=== PATIENT | male | born 1980 | race Caucasian/White ===

== ENCOUNTER 2017-05-19 10:45 | Inpatient (IN) | payer OTHER ==
--- NOTE | 2017-05-19 11:07 | ED ---
Lower Extremity Injury HPI - General Stated Complaint: Infected Knee Time Seen by Provider: 05/19/17 10:47 Source: patient, EMS, RN notes reviewed Mode of arrival: EMS Limitations: no limitations - History of Present Illness Initial Comments: This a 37-year-old male presents emergency Department chief complaint of right knee pain, swelling redness. Patient states that he's been working on a deck and states that he figured he may have a sliver in his knee. Patient states he thought it would just go away on its own and press the sliver out once it swelled. Patient states ever since Saturday he's had increasing redness, swelling. Patient states that he had a fever last night states that he had sweats and chills. Patient states that he has pain with any movement of his right knee especially weightbearing. He states his tetanus is up-to-date within the last 5 years. Patient has never seen an orthopedic doctor in the past. - Related Data Allergies Allergy/AdvReac Type Severity Reaction Status Date / Time No Known Allergies Allergy Verified 05/19/17 10:55 Review of Systems ROS Statement: Those systems with pertinent positive or pertinent negative responses have been documented in the HPI. ROS Other: All systems not noted in ROS Statement are negative. Past Medical History Past Medical History: No Reported History History of Any Multi-Drug Resistant Organisms: None Reported Past Surgical History: No Surgical Hx Reported Past Psychological History: No Psychological Hx Reported Smoking Status: Current every day smoker Past Alcohol Use History: Heavy Past Drug Use History: Marijuana General Exam Limitations: no limitations General appearance: alert, in no apparent distress Respiratory exam: Present: normal lung sounds bilaterally. Absent: respiratory distress, wheezes, rales, rhonchi, stridor Cardiovascular Exam: Present: regular rate, normal rhythm, normal heart sounds. Absent: systolic murmur, diastolic murmur, rubs, gallop, clicks Extremities exam: Present: other (Right knee in the inferior lateral aspect there is a 1 cm open wound with extensive erythema of approximately 50% of the knee patient has pain with active and passive range of motion there is warmth to the knee and moderate swelling) Skin exam: Present: warm, dry Course Vital Signs 05/19/17 10:51 Temperature 97.9 F Pulse Rate 68 Respiratory 18 Rate Blood Pressure 135/77 O2 Sat by Pulse 100 Oximetry Medical Decision Making - Medical Decision Making I did discuss case with nidhi orozco with orthopedics he does recommend the patient be admitted to medicine with consult to infectious disease and or thrill. - Lab Data Result diagrams: 05/19/17 11:00 05/19/17 11:00 Lab Results 05/19/17 05/19/17 05/19/17 Range/Units 11:00 11:00 11:00 WBC 15.8 H (3.8-10.6) k/uL RBC 5.07 (4.30-5.90) m/uL Hgb 16.1 (13.0-17.5) gm/dL Hct 46.8 (39.0-53.0) % MCV 92.2 (80.0-100.0) fL MCH 31.8 (25.0-35.0) pg MCHC 34.4 (31.0-37.0) g/dL RDW 13.9 (11.5-15.5) % Plt Count 281 (150-450) k/uL Neutrophils % 81 % Lymphocytes % 10 % Monocytes % 6 % Eosinophils % 2 % Basophils % 0 % Neutrophils # 12.8 H (1.3-7.7) k/uL Lymphocytes # 1.6 (1.0-4.8) k/uL Monocytes # 0.9 (0-1.0) k/uL Eosinophils # 0.3 (0-0.7) k/uL Basophils # 0.1 (0-0.2) k/uL ESR 9 (0-15) mm/hr PT (9.0-12.0) sec INR (<1.2) APTT (22.0-30.0) sec Sodium 141 (137-145) mmol/L Potassium 3.9 (3.5-5.1) mmol/L Chloride 103 (98-107) mmol/L Carbon Dioxide 26 (22-30) mmol/L Anion Gap 12 mmol/L BUN 12 (9-20) mg/dL Creatinine 0.90 (0.66-1.25) mg/dL Est GFR (MDRD) Af Amer >60 (>60 ml/min/1.73 sqM) Est GFR (MDRD) Non-Af >60 (>60 ml/min/1.73 sqM) Glucose 85 (74-99) mg/dL Plasma Lactic Acid Sam 1.4 (0.7-2.0) mmol/L Calcium 10.0 (8.4-10.2) mg/dL Total Bilirubin 1.1 (0.2-1.3) mg/dL AST 20 (17-59) U/L ALT 32 (21-72) U/L Alkaline Phosphatase 59 (38-126) U/L C-Reactive Protein 124.3 H (<10.0) mg/L Total Protein 6.7 (6.3-8.2) g/dL Albumin 4.4 (3.5-5.0) g/dL 05/19/17 Range/Units 11:00 WBC (3.8-10.6) k/uL RBC (4.30-5.90) m/uL Hgb (13.0-17.5) gm/dL Hct (39.0-53.0) % MCV (80.0-100.0) fL MCH (25.0-35.0) pg MCHC (31.0-37.0) g/dL RDW (11.5-15.5) % Plt Count (150-450) k/uL Neutrophils % % Lymphocytes % % Monocytes % % Eosinophils % % Basophils % % Neutrophils # (1.3-7.7) k/uL Lymphocytes # (1.0-4.8) k/uL Monocytes # (0-1.0) k/uL Eosinophils # (0-0.7) k/uL Basophils # (0-0.2) k/uL ESR (0-15) mm/hr PT 10.7 (9.0-12.0) sec INR 1.1 (<1.2) APTT 25.3 (22.0-30.0) sec Sodium (137-145) mmol/L Potassium (3.5-5.1) mmol/L Chloride (98-107) mmol/L Carbon Dioxide (22-30) mmol/L Anion Gap mmol/L BUN (9-20) mg/dL Creatinine (0.66-1.25) mg/dL Est GFR (MDRD) Af Amer (>60 ml/min/1.73 sqM) Est GFR (MDRD) Non-Af (>60 ml/min/1.73 sqM) Glucose (74-99) mg/dL Plasma Lactic Acid Sam (0.7-2.0) mmol/L Calcium (8.4-10.2) mg/dL Total Bilirubin (0.2-1.3) mg/dL AST (17-59) U/L ALT (21-72) U/L Alkaline Phosphatase (38-126) U/L C-Reactive Protein (<10.0) mg/L Total Protein (6.3-8.2) g/dL Albumin (3.5-5.0) g/dL Disposition Clinical Impression: Septic infrapatellar bursitis of right knee Disposition: ADMITTED IP TO THIS HOSP Condition: Fair Referrals: None,Stated [Primary Care Provider] - 1-2 days Time of Disposition: 12:49
[2017-05-19 11:19] LABS: Basophils # (A) 0.1 k/uL (0-0.2); Basophils % (A) 0 %; CH 31.9; CHCM 34.8; Eosinophils # (A) 0.3 k/uL (0-0.7); Eosinophils % (A) 2 %; HCT 46.8 % (39.0-53.0); HDW 2.22; HGB 16.1 gm/dL (13.0-17.5); Luc # (Auto) 0.18; Luc % (Auto) 1; Lymphocytes # (A) 1.6 k/uL (1.0-4.8); Lymphocytes % (A) 10 %; MCH 31.8 pg (25.0-35.0); MCHC 34.4 g/dL (31.0-37.0); MCV 92.2 fL (80.0-100.0); Mean Platelet Volume 6.8; Monocytes # (A) 0.9 k/uL (0-1.0); Monocytes % (A) 6 %; Neutrophils # (A) 12.8 k/uL (1.3-7.7); Neutrophils % (A) 81 %; RBC 5.07 m/uL (4.30-5.90); RDW 13.9 % (11.5-15.5); WBC 15.8 k/uL (3.8-10.6); WBC (Perox) 14.65
[2017-05-19 11:28] LABS: INR 1.1 (<1.2); Partial Thromboplastin Time 25.3 sec (22.0-30.0); Prothrombin Time 10.7 sec (9.0-12.0)
--- NOTE | 2017-05-19 11:33 | XR ---
EXAMINATION TYPE: XR knee complete RT DATE OF EXAM: 05/19/2017 CLINICAL HISTORY: pain TECHNIQUE: Three views of the right knee are obtained. COMPARISON: None. FINDINGS: There is no acute fracture/dislocation. The tri-compartment joint spaces appear within no rmal limits. Prepatellar soft tissue edema. IMPRESSION: There is no acute fracture or dislocation. Correlate for cellulitis prepatellar soft tis sues. ICD 10 NO FRACTURE, INITIAL EVALUATION
[2017-05-19 11:34] LABS: ALT 32 U/L (21-72); AST 20 U/L (17-59); Alkaline Phosphatase 59 U/L (38-126); Anion Gap 12 mmol/L; Blood Urea Nitrogen 12 mg/dL (9-20); Carbon Dioxide 26 mmol/L (22-30); Chloride 103 mmol/L (98-107); Glucose 85 mg/dL (74-99); Non-African American GFR(MDRD) >60 (>60 ml/min/1.73 sqM); Potassium 3.9 mmol/L (3.5-5.1); Sodium 141 mmol/L (137-145); Total Bilirubin 1.1 mg/dL (0.2-1.3); Total Protein 6.7 g/dL (6.3-8.2)
[2017-05-19 11:55] LABS: C Reactive Protein 124.3 mg/L (<10.0)
[2017-05-19 12:03] LABS: Erythrocyte Sedimentation Rate 9 mm/hr (0-15)
[2017-05-19] MEDS ORDERED: IV VANCOMYCIN PER PHARMACY 1 EACH MISC MISCELLANE PRN (12:15)
[2017-05-19] MEDS ORDERED: VANCOMYCIN 1,000 MG in SODIUM CHLORIDE 0.9% 250 ML IVPB STA (12:21)
[2017-05-19] MEDS ORDERED: ACETAMINOPHEN TAB 325 MG TAB PO PRN (12:49)
[2017-05-19] MEDS ORDERED: ONDANSETRON 4 MG/2 ML VIAL IVP PRN (12:49)
[2017-05-19] MEDS ORDERED: HYDROcodone/APAP 5-325MG 1 EACH TAB PO PRN (12:49)
[2017-05-19] MEDS ORDERED: NALOXONE 0.4 MG/ML 1 ML VIAL IV PRN (12:49)
[2017-05-19] MEDS ORDERED: MORPHINE SULFATE 4 MG/ML SYRINGE IV PRN (12:49)
[2017-05-19] MEDS ORDERED: DIAZEPAM 5 MG TAB PO PRN (14:42)
[2017-05-19] MEDS ORDERED: LORazepam 2 MG/ML SYRINGE IV STA (14:42)
[2017-05-19] MEDS: SODIUM CHLORIDE 0.9% 1,000 ML IV SCH (14:45)
--- NOTE | 2017-05-19 14:51 | P.CNOR ---
History of Present Illness - [facility] Consult date: 05/19/17 Consult reason: joint pain History of present illness: This is a 36-year-old male who presented to [facility] on this afternoon with regards to pain and swelling over the anterior aspect of the right knee. Patient noticed a small bump over the knee on Saturday of this week, this progressively got worse throughout the weekend. Patient was working on a deck doing a lot of kneeling last week, he thinks he may have got a splinter. Patient states a few days ago he tried to stick a needle into the area to drain it. He had noticed a fever last night, which prompted him to report today. He is examined today at bedside after being admitted under internal medicine with both our service and infectious disease consult. He has some family present with him today. He notes most the pain over the anterior aspect of the knee. He is very agitated on exam. He can't bend the knee without it hurting over the front, he's had a hard time putting weight through the knee. He denies any other pain involving the right lower extremity, including the foot and ankle and hip. He denies any left lower extremity pain. He denies any bilateral upper extremity pain, cervical, thoracic and lumbar spine He denies any previous orthopedic surgery involving the right lower extremity. Patient states he hasn't drank anything over the last 24 hours. Review of Systems Constitutional: Reports as per [facility] Past Medical History Past Medical History: No Reported History History of Any Multi-Drug Resistant Organisms: None Reported Past Surgical History: No Surgical Hx Reported Past Psychological History: No Psychological Hx Reported Smoking Status: Current every day smoker Past Alcohol Use History: Heavy Past Drug Use History: Marijuana Medications and Allergies Home Medications Medication Instructions Recorded Confirmed Type No Known Home Medications [No 05/19/17 05/19/17 History Known Home Medications] Allergies Allergy/AdvReac Type Severity Reaction Status Date / Time No Known Allergies Allergy Verified 05/19/17 13:05 Physical Examination Right lower extremity: Notable scab present over the anterior aspect of the knee in the prepatellar region, no active drainage visualized. There is erythema noted in that area, obvious fluctuance appreciated over the prepatellar bursa. No effusion appreciated around the right knee, he has no medial lateral joint line tenderness. He's nontender in the calf, it's soft to touch. His anterior posterior compartment of the upper thigh are soft. Logroll maneuver reproduces no pain in the hip. Plantar flexion, dorsiflexion, EHL, FHL are intact. His sensory exam to light touch throughout the extremities intact, his dorsal pedis pulses 2+. Results - Labs Labs: Abnormal Lab Results - Last 24 Hours (Table) 05/19/17 05/19/17 Range/Units 11:00 11:00 WBC 15.8 H (3.8-10.6) k/uL Neutrophils # 12.8 H (1.3-7.7) k/uL C-Reactive Protein 124.3 H (<10.0) mg/L H & H 05/19/17 Range/Units 11:00 Hgb 16.1 (13.0-17.5) gm/dL Hct 46.8 (39.0-53.0) % Coagulation 05/19/17 Range/Units 11:00 INR 1.1 (<1.2) Result Diagrams: 05/19/17 11:00 05/19/17 11:00 - Diagnostic results Knee x-ray: report reviewed, image reviewed Assessment and Plan Plan: Visit imaging: Multiple views of the right knee are obtained in the emergency room. Images demonstrated no acute fractures or dislocations. Obvious soft tissue swelling over the prepatellar bursa noted Assessment: 1. Right knee septic prepatellar bursa Plan: 1. I was able to discuss this case, including both physical exam findings and imaging studies with Dr. Camara. We would like to proceed with a incision and drainage procedure later this afternoon. The patient has been nothing by mouth , and was made nothing by mouth at the hospital. 2. Obtain consent, the procedure was discussed with the patient including risk and benefits and he has any grants. 3. We will take culture and sensitivity at time of surgery, infectious disease will be consult at 4. Medical recommendations 5. Pain control, he'll utilize IV pain medication and oral 6. Weight-bear as tolerated 7. Nothing by mouth 8. Further conditions to follow after surgery Time with Patient: Less than 30
[2017-05-19] MEDS ORDERED: MIDAZOLAM 2 MG/2 ML VIAL ONE (19:15)
[2017-05-19] MEDS ORDERED: LIDOCAINE 1% INJ 10MG/ML (20 ML MDV) ONE (19:15)
[2017-05-19] MEDS ORDERED: PROPOFOL 10 MG/ML 20 ML VIAL IV ONE (19:15)
[2017-05-19] MEDS ORDERED: fentaNYL (PF) 50 MCG/ML 2 ML AMP ONE (19:15)
[2017-05-19] MEDS ORDERED: SODIUM CHLORIDE 0.9% 500 ML IV ONE (19:15)
[2017-05-19] MEDS ORDERED: SUCCINYLCHOLINE CHLORIDE 100 MG/5 ML SYR IV ONE (19:15)
[2017-05-19] MEDS ORDERED: LACTATED RINGERS 1,000 ML IV ONE (19:15)
--- NOTE | 2017-05-19 19:59 | P.OP ---
Date of Procedure: 05/19/17 Preoperative Diagnosis: Right knee septic prepatellar bursitis Postoperative Diagnosis: Same Procedure(s) Performed: Incision and drainage with irrigation and debridement right knee septic prepatellar bursitis Implants: Anesthesia: ELISHA Surgeon: David Camara Pathology: other (Cultures from the patellar bursa) Condition: stable Disposition: PACU Indications for Procedure: Patient's a 36-year-old male who presents with several-day history of increasing pain and redness on the anterior aspect of his right knee. He thinks he may have recently got a splinter that. He was trying to remove that with a needle. Upon evaluation he was noted have evidence of a septic prepatellar bursitis. He discussion the risks and benefits of operative intervention was made with patient. Specific risks of surgery to include persistence of infection and need for subsequent procedures was discussed. Informed consent was obtained. Operative Findings: As below Description of Procedure: The patient was brought to the operating room, and after induction of general anesthesia the right lower extremity was prepped and draped in normal fashion. The tourniquet was inflated to 270 mmHg. A 4 cm incision was then made over the true aspect of the right knee. Skin was incised sharply. Subcu tissues divided sharply. Deep cultures were obtained. The bursal tissue was excised. There was a sinus tract that was debrided as well. This was then copiously irrigated with pulsatile lavage. The skin was reapproximated loosely with simple 3-0 nylon sutures over a Bonita drain. A sterile dressing was applied. Patient was awoken from general anesthesia and transferred to the recovery room in good condition. The tourniquet was deflated with approximately 20 minutes total tourniquet time. Blood loss was estimated at 20 mL. No complications were incurred. Sponge and needle counts were correct in the case.
[2017-05-19] MEDS ORDERED: HYDROmorphone 1 MG/ML 1 ML SYRINGE IVP PRN (20:00)
[2017-05-19] MEDS ORDERED: MEPERIDINE 50 MG/ML SYRINGE IVP ONE ×2 (20:05→20:15)
[2017-05-19] MEDS ORDERED: VANCOMYCIN 1,000 MG in SODIUM CHLORIDE 0.9% 250 ML IVPB SCH (21:00)
[2017-05-19] MEDS: HYDROmorphone 1 MG/ML 1 ML SYRINGE IVP PRN (21:11)
[2017-05-19] MEDS: NICOTINE 14MG/24HR PATCH TRANSDERM SCH (22:11)
[2017-05-19] MEDS: VANCOMYCIN 1,000 MG in SODIUM CHLORIDE 0.9% 250 ML IVPB SCH (22:11)
[2017-05-19] MEDS: traMADol 50 MG TAB PO SCH (22:16)
[2017-05-19] MEDS: HYDROcodone/APAP 5-325MG 1 EACH TAB PO PRN (22:49)
[2017-05-20] MEDS: SODIUM CHLORIDE 0.9% 1,000 ML IV SCH ×3 (03:24→20:22)
[2017-05-20] MEDS: HYDROmorphone 1 MG/ML 1 ML SYRINGE IVP PRN ×4 (03:31→22:24)
[2017-05-20] MEDS: HYDROcodone/APAP 5-325MG 1 EACH TAB PO PRN ×3 (06:59→20:17)
[2017-05-20] MEDS: traMADol 50 MG TAB PO SCH ×4 (08:00→20:17)
[2017-05-20] MEDS: VANCOMYCIN 1,000 MG in SODIUM CHLORIDE 0.9% 250 ML IVPB SCH ×2 (08:05→20:16)
[2017-05-20] MEDS: NICOTINE 14MG/24HR PATCH TRANSDERM SCH (08:08)
--- NOTE | 2017-05-20 10:31 | CONS ---
DATE OF CONSULTATION: 05/19/2017 REASON FOR CONSULTATION: Right knee septal bursitis. HISTORY OF PRESENT ILLNESS: The patient is a 30-year-old male who presented to the ER at [facility] with chief complaints of pain, swelling, redness of his right knee. Apparently the patient did notice a small bump over the knee on Saturday of last week that had progressively got worse over the weekend. Apparently the patient had been working on a deck doing a lot of nailing last week and did not recall if there was any splinter or injury to the area. With worsening swelling, the patient did try to stick a needle into the area to drain it. He started having a fever that did concern the patient and he presented to the ER. The patient did have evaluation by the ER physician. The patient did have a x-rays of the knee which did show no acute fracture or dislocation. ( ) cellulitis, prepatellar soft tissue. The patient with fever had been admitted to the hospital and did have an elevated white count of 15.8. Patient was started on vancomycin and ID was consulted for further recommendations. The patient will be evaluated by Orthopedics with possible I&D of this bursa later this afternoon. The patient apparently was agitated and did receive a dose of Ativan per the RN and at the time of my evaluation is completely out and unable to provide any reliable history so most of the information has been obtained from review of the chart and talking to the nursing staff. Review of the systems could not be reliably obtained with the positive points as mentioned in HPI. PAST MEDICAL HISTORY: No major illnesses. PAST SURGICAL HISTORY: No surgeries. SOCIAL HISTORY: Positive for smoking about a pack a day and did have history of heavy drinking and marijuana use. FAMILY HISTORY: No pertinent findings noticed. ALLERGIES: No known drug allergies. Medications include the patient is currently on Tylenol, P[place], Valium, morphine sulfate, Narcan, Zofran, vancomycin currently getting 1 gram q.12h. On examination: Blood pressure 101/51 with pulse 75. Temperature 98.6. He is 97 % on room air. General description is a middle aged male lying in bed in no distress. No tachypnea or accessory muscle of respiration use. HEENT examination shows no pallor or scleral icterus. Oral mucous membrane is dry. NECK: Trachea is central. No thyromegaly. LUNGS: Unlabored breathing. Clear to auscultation anteriorly. No wheeze or crackles. HEART: S1, S2 regular rate and rhythm. ABDOMEN: Soft, no tenderness. MUSCULOSKELETAL: The right knee especially the prepatellar bursa seems to be swollen and red with small pus point. No drainage. SKIN: No rash or mass palpable. NEUROLOGICAL: Patient is currently lethargic. Orientation could not be determined. LABS: Hemoglobin 16.1, white count 15, BUN 12, creatinine 0.90. DIAGNOSTIC IMPRESSION AND PLAN: Patient with right prepatellar bursitis. More likely from a gram positive skin rebecca suggestive ( ); however, underlying MRSA infection is not entirely excluded. PLAN: 1. Ortho has been requested to obtain deep cultures at the time of surgery including bursectomy and I&D. 2. Vancomycin pharmacy to dose with target of 15 to continue. 3. Will follow up on clinical condition and culture to further adjust medication if needed. Thank you for this consultation. Will follow this patient along with you. MENG
--- NOTE | 2017-05-20 14:37 | HP ---
CHIEF COMPLAINT: A 36-year-old white male with right knee pain, swelling, redness, working on the deck, sliver in his knee, will not go away, ( ), has been fever and chills. Things have got worse and worse. Has never seen and orthopedic doctor. ALLERGIES: No known drug allergies. The system is negative for 12-point review of systems. He is a current everyday smoker, heavy marijuana, no alcohol, no illicit drugs. VITAL SIGNS: Temperature 97, pulse 60 to 68, respiratory 12 to 18, blood pressure 135/77, O2 is 100% on room air. CARDIOVASCULAR: S1, S2. LUNGS: Transmitted upper airway sounds. GI: Soft. HEMATOLOGIC: Negative Homans. PSYCH: Fair mood and affect. NEUROLOGIC: Alert and oriented x3. Orthopedic shows right knee red, swollen. Inferior midpatellar open sore. White count is 15.8. ASSESSMENT: 1. Leukocytosis. 2. Septic bursitis of the right knee. 3. Cellulitis of the right knee. Continue with IV antibiotics. Continue with knee possible orthopedic intervention. MENG
[2017-05-20 15:46] LABS: Basophils # (A) 0.1 k/uL (0-0.2); Basophils % (A) 0 %; CH 31.4; CHCM 32.9; Eosinophils # (A) 0.2 k/uL (0-0.7); Eosinophils % (A) 2 %; HCT 40.8 % (39.0-53.0); HDW 2.16; HGB 13.6 gm/dL (13.0-17.5); Luc # (Auto) 0.13; Luc % (Auto) 1; Lymphocytes # (A) 1.6 k/uL (1.0-4.8); Lymphocytes % (A) 15 %; MCH 31.9 pg (25.0-35.0); MCHC 33.3 g/dL (31.0-37.0); MCV 95.9 fL (80.0-100.0); Mean Platelet Volume 8.4; Monocytes # (A) 0.8 k/uL (0-1.0); Monocytes % (A) 8 %; Neutrophils # (A) 7.8 k/uL (1.3-7.7); Neutrophils % (A) 73 %; RBC 4.26 m/uL (4.30-5.90); RDW 13.4 % (11.5-15.5); WBC 10.6 k/uL (3.8-10.6); WBC (Perox) 11.03
--- NOTE | 2017-05-20 16:16 | P.PN ---
Subjective Principal diagnosis: Status post I&D right septic prepatellar bursa Patient seen today resting in his hospital bed, he appears comfortable. He feels a lot better than yesterday. He notes some discomfort with weightbearing. He denies any chest pain, shortness of breath, fever or chills. Objective - Vital Signs Vital signs: Vital Signs Temp 97.0 F L 05/20/17 15:39 Pulse 82 05/20/17 15:39 Resp 18 05/20/17 15:39 BP 106/57 05/20/17 15:39 Pulse Ox 99 05/20/17 15:39 Intake & Output 05/19/17 05/20/17 05/20/17 18:59 06:59 18:59 Intake Total 700 Output Total 1960 Balance -1260 Weight 58.967 kg Intake: IV 700 Output: Urine 1950 Estimated Blood Loss 10 Other: Voiding Method Urinal # Voids 2 3 - Exam Right lower extremity: Initial postop bandage was removed, Bonita drain was removed. There was a moderate amount of bloody serosanguineous drainage noted on the bandage. And sutures are all intact position, there is no active drainage visualized. Minimal erythema present. Calf is soft, no tenderness with palpation. His distal neurovascular exam is intact - Labs CBC & Chem 7: 05/20/17 10:26 05/19/17 11:00 Labs: Abnormal Lab Results - Last 24 Hours (Table) 05/20/17 Range/Units 10:26 RBC 4.26 L (4.30-5.90) m/uL Neutrophils # 7.8 H (1.3-7.7) k/uL Microbiology - Last 24 Hours (Table) 05/19/17 11:00 Blood Culture - Preliminary Blood No Growth after 24 hours 05/19/17 19:35 Gram Stain - Preliminary Knee - Right Wound Culture - Preliminary 05/19/17 19:35 Gram Stain - Preliminary Knee - Right Wound Culture - Preliminary 05/19/17 19:35 Anaerobic Culture - Preliminary Knee - Right 05/19/17 19:35 Anaerobic Culture - Preliminary Knee - Right Assessment and Plan Plan: Assessment: 1. Postop day #1 status post I&D septic right prepatellar bursa Plan: 1. Pain control, continue supportive oral medications 2. Daily dressing changes/ice and elevate 3. Await culture and sensitivities 4. Medical and infectious disease recommendations 5. Weight-bear as tolerated 6. Further recommendations follow Time with Patient: Less than 30
[2017-05-21] MEDS: HYDROcodone/APAP 5-325MG 1 EACH TAB PO PRN ×3 (03:03→15:10)
[2017-05-21] MEDS: HYDROmorphone 1 MG/ML 1 ML SYRINGE IVP PRN ×2 (06:13→12:14)
[2017-05-21 07:36] VITALS: RESP 16
[2017-05-21] MEDS ORDERED: VANCOMYCIN TROUGH DUE 1 EACH MISC MISCELLANE ONE (08:00)
[2017-05-21] MEDS: traMADol 50 MG TAB PO SCH ×3 (08:02→16:36)
[2017-05-21] MEDS: VANCOMYCIN 1,000 MG in SODIUM CHLORIDE 0.9% 250 ML IVPB SCH (08:03)
[2017-05-21] MEDS: NICOTINE 14MG/24HR PATCH TRANSDERM SCH (08:03)
[2017-05-21 09:23] LABS: Anion Gap 8 mmol/L; Blood Urea Nitrogen 9 mg/dL (9-20); Calcium 9.1 mg/dL (8.4-10.2); Carbon Dioxide 28 mmol/L (22-30); Chloride 105 mmol/L (98-107); Glucose 104 mg/dL (74-99); Non-African American GFR(MDRD) >60 (>60 ml/min/1.73 sqM); Sodium 141 mmol/L (137-145)
--- NOTE | 2017-05-21 09:34 | PN ---
DATE OF SERVICE: 05/20/2017 Reason for followup is right knee septic prepatellar bursitis. INTERVAL HISTORY: The patient is afebrile. She was complaining of pain to the right knee area. The patient ( ) I&D of the same last evening. The patient denies significant chest pain, shortness of breath or cough. No abdominal pain or any diarrhea. On examination, blood pressure 107/65 with a pulse of 75, temperature 98. He is 98% on room air. General description is a middle aged male lying in bed in no distress. RESPIRATORY SYSTEM: Unlabored breathing. Clear to auscultation anteriorly. HEART: S1, S2. Regular rate and rhythm. ABDOMEN: Soft. No tenderness. Right knee is currently dressed up. No obvious drainage on the dressing. LABS: Hemoglobin is 13.6, white count 10.6. Wound culture with presumptive MRSA. DIAGNOSTIC IMPRESSION AND PLAN: Patient with MRSA right knee prepatellar bursitis, status post ( ). Patient to continue on vancomycin. Re-evaluate the wound tomorrow. Awaiting for the culture to finalize to manage discharge antibiotics. Continue support care. MENG
--- NOTE | 2017-05-21 11:44 | PN ---
SUBJECTIVE: A 36-year-old white male, status post septic bursitis of the right knee. Patient has been sent to the orthopedic surgery for the knee clinic. Continues on IV antibiotics. Await cultures prior to determining whether he needs a PICC line or oral antibiotics. CARDIOVASCULAR: S1 and S2. LUNGS: Clear. MUSCULOSKELETAL: Right knee with some redness and swelling, which is decreasing. PLAN: Continue with IV antibiotics, wound care. Awaiting orthopedic cultures done in the OR. MENG
[2017-05-21] MEDS ORDERED: LIDOCAINE 2% INJ 20 MG/ML SQ ONE (14:44)
--- NOTE | 2017-05-21 15:16 | P.PN ---
Subjective Principal diagnosis: Status post I&D right septic prepatellar bursa Patient seen today resting in his hospital bed, he appears comfortable. He denies any chest pain, shortness of breath, fever or chills. Objective - Vital Signs Vital signs: Vital Signs Temp 97.0 F L 05/21/17 07:35 Pulse 71 05/21/17 07:35 Resp 16 05/21/17 07:35 BP 120/87 05/21/17 07:35 Pulse Ox 98 05/21/17 07:35 Intake & Output 05/20/17 05/21/17 05/21/17 18:59 06:59 18:59 Intake Total 100 Output Total 900 Balance -800 Intake: Oral 100 Output: Urine 900 Other: Voiding Method Urinal # Voids 3 2 3 - Exam Right lower extremity: Incisions clean, dry and intact. And sutures are all intact position, there is no active drainage visualized. Minimal erythema present. Calf is soft, no tenderness with palpation. His distal neurovascular exam is intact - Labs CBC & Chem 7: 05/20/17 10:26 05/21/17 08:52 Labs: Abnormal Lab Results - Last 24 Hours (Table) 05/20/17 05/21/17 Range/Units 10:26 08:52 RBC 4.26 L (4.30-5.90) m/uL Neutrophils # 7.8 H (1.3-7.7) k/uL Glucose 104 H (74-99) mg/dL Microbiology - Last 24 Hours (Table) 05/19/17 11:00 Blood Culture - Preliminary Blood No Growth after 48 hours 05/19/17 19:35 Gram Stain - Preliminary Knee - Right Wound Culture - Preliminary Presumptive MRSA 05/19/17 19:35 Gram Stain - Preliminary Knee - Right Wound Culture - Preliminary Presumptive MRSA Assessment and Plan Plan: Assessment: 1. Postop day #2 status post I&D septic right prepatellar bursa Plan: 1. Pain control, continue supportive oral medications 2. Daily dressing changes/ice and elevate 3. Patient data PICC line today, he will be discharged home on IV medication 4. Weight-bear as tolerated 5. Patient will be discharged home today Time with Patient: Less than 30
[2017-05-21 15:28] VITALS: BP 114/65; PULSE 60; TEMP 96.4
[2017-05-21] MEDS ORDERED: VANCOMYCIN 1,000 MG in SODIUM CHLORIDE 0.9% 250 ML IVPB SCH (16:00)
[2017-05-21] MEDS: SODIUM CHLORIDE 0.9% 1,000 ML IV SCH (16:36)
[2017-05-21] MEDS ORDERED: VANCOMYCIN 1,500 MG in SODIUM CHLORIDE 0.9% 250 ML IVPB SCH (18:00)
--- NOTE | 2017-05-21 18:36 | PN ---
DATE OF SERVICE: 05/21/2017 REASON FOR FOLLOW UP: Right knee septic infrapatellar bursitis. INTERVAL HISTORY: The patient is afebrile. He is breathing comfortably. No significant swelling of his leg especially the knee area. Pain is currently controlled with pain medication. There is very minimal drainage, but denies significant chest pain or shortness of breath. No abdominal pain or any diarrhea. On examination: Blood pressure 120/87 with pulse 71. Temperature 97. He is 98% on room air. General description is a middle aged male up in the bed in no distress. RESPIRATORY: Unlabored breathing. Clear to auscultation anteriorly. HEART: S1, S2 regular rate and rhythm. ABDOMEN: Soft, no tenderness. EXTREMITIES: Right knee incision site still has some erythema with minimal drainage. LABS: BUN 9, creatinine of 0.83. Wound culture presented with MRSA DIAGNOSTIC IMPRESSION AND PLAN: Patient with right knee infrapatellar bursitis septic with possible MRSA. Awaiting for the final identification. Patient will be continued on vancomycin in view of extensive infection the patient will benefit from getting a PICC line and IV antibiotic therapy in the outpatient setting, which is currently being arranged by the correctional casework specialist. Continue supportive care. MENG
--- NOTE | 2017-05-22 12:39 | IR ---
EXAMINATION TYPE: IR cvc insert >=5 years DATE OF EXAM: 05/21/2017 COMPARISON: NONE CLINICAL HISTORY: Infection Needs long-term intravenous access for antibiotics. PROCEDURE: After informed consent, the skin overlying the left brachial vein was localized with ultrasound and n oted to be compressible and patent. An ultrasound image was obtained and submitted on the patient's chart. The overlying skin was prepped and draped and Lidocaine was used for local anesthesia. A ski n nidhi was made with a scalpel. Access was gained to the vein under ultrasound guidance with a 21 ga uge needle and a 0.018 inch wire was advanced. Access site was dilated with Peel-Away sheath and cat heter tailored to the appropriate length and advanced such that the distal tip is at the cavoatrial j unction. Spot image was obtained verifying placement. Catheter was fixed to the skin with suture an d a sterile dressing was placed following hemostasis. Catheter was aspirated and flushed with saline . Patient was discharged in stable condition without complication. Maximal barrier technique is util ized. Ultrasound image is documented on the chart. Ultrasound used with sterile technique. Fluoro time and fluoroscopic images submitted to document procedure: 150 intraoperative C-arm images, 1.5 minutes fluoroscopy time IMPRESSION: STATUS POST ULTRASOUND AND FLUOROSCOPIC GUIDED PICC LINE PLACEMENT, READY FOR USE. THIS PROCEDURE WAS PERFORMED BY THE UNDERSIGNED.
--- NOTE | 2017-05-24 14:43 | DS ---
DISCHARGE DIAGNOSES: 1. Septic bursitis right knee. 2. Cellulitis right knee. 3. Nicotine addiction. CONDITION: Stable. PROGNOSIS: Guarded. DIET: Regular. Ambulate as tolerated. HOME MEDICATIONS: IV vancomycin with dose per Pharmacy unit and Infectious Disease for 2 weeks with a PICC line. HOSPITAL COURSE OF EVENTS: A white male who came in with cellulitis of the right knee, septic arthritis, septic bursitis inferior to the knee. The patient is started on IV vancomycin, PICC line was put in. Patient will follow up with IV vancomycin for 2 weeks after review of cultures with Infectious Disease. Nicotine cessation. Patient refusing any treatment. He will followup as an outpatient. MENG
== END 2017-05-21 19:25 | disposition home or self-care (01) | DRG 501 ==
LOC: EC 10:45 → 4MS4W 13:04 → EDBD 13:04
PROVIDERS: ADMIT Family Medicine; ATTEND Family Medicine
PROC: 0Y9F0ZX Drainage of Right Knee Region, Open Approach, Diagnostic (ICD-10-PCS; 2017-05-19)
PROC: 0MBN0ZZ Excision of Right Knee Bursa and Ligament, Open Approach (ICD-10-PCS; principal; 2017-05-19 19:00)
DX: M71.161 Other infective bursitis, right knee (principal); L03.115 Cellulitis of right lower limb; F12.90 Cannabis use, unspecified, uncomplicated; F17.200 Nicotine dependence, unspecified, uncomplicated
CPT/HCPCS: 36415; 36569; 76937; 77001; 80048; 80053; 80202; 83605; 85025; 85610; 85652; 85730; 86140; 87040; 87070; 87075; 87077; 87186; 87205; 96365; 99285

== ENCOUNTER 2017-06-04 19:16 | Emergency (ER) | payer OTHER ==
[2017-06-04 19:41] VITALS: RESP 18
--- NOTE | 2017-06-04 20:26 | ED ---
General Adult HPI - General Chief complaint: Recheck/Abnormal Lab/Rx Stated complaint: PICC line problem Time Seen by Provider: 06/04/17 20:18 Source: patient, RN notes reviewed Mode of arrival: ambulatory Limitations: no limitations - History of Present Illness Initial comments: This a 36-year-old male presents emergency Department with chief complaint of questions of his PICC line. Patient states that he has a use every day and states that he felt there may be a cane, and is concerned that he may have slid out slightly. Patient states that he is having no pain associated denies any chest pain or shortness breath. Patient states that there is no redness no drainage. Patient has this for septic bursitis of his elbow and infection to his knee. - Related Data Home Medications Medication Instructions Recorded Confirmed Hydrocodone/Acetaminophen [[place] 1 tab PO TID PRN 06/04/17 06/04/17 5-325] Allergies Allergy/AdvReac Type Severity Reaction Status Date / Time No Known Allergies Allergy Verified 06/04/17 20:35 Review of Systems ROS Statement: Those systems with pertinent positive or pertinent negative responses have been documented in the HPI. ROS Other: All systems not noted in ROS Statement are negative. Past Medical History Past Medical History: No Reported History History of Any Multi-Drug Resistant Organisms: MRSA Date of last positivie culture/infection: 05/19/17 MDRO Source:: KNEE Past Surgical History: No Surgical Hx Reported Past Anesthesia/Blood Transfusion Reactions: No Reported Reaction Past Psychological History: No Psychological Hx Reported Smoking Status: Current every day smoker Past Alcohol Use History: Occasional Past Drug Use History: Marijuana General Exam Limitations: no limitations General appearance: alert, in no apparent distress Head exam: Present: atraumatic, normocephalic, normal inspection Respiratory exam: Present: normal lung sounds bilaterally. Absent: respiratory distress, wheezes, rales, rhonchi, stridor Cardiovascular Exam: Present: regular rate, normal rhythm, normal heart sounds. Absent: systolic murmur, diastolic murmur, rubs, gallop, clicks Extremities exam: Present: other (Left arm brachial region there is a PICC line noted there is no erythema the line appears to be appropriate there is good placement.) Course Vital Signs 06/04/17 19:36 Temperature 97.6 F Pulse Rate 104 H Respiratory 18 Rate Blood Pressure 143/75 O2 Sat by Pulse 98 Oximetry Medical Decision Making - Medical Decision Making 36-year-old male presented for PICC line possible compilations. PICC line does flush with no comp patients. The site does appear within normal limits. Patient will be discharged and follow-up with his primary care physician. Disposition Clinical Impression: S/P PICC central line placement Disposition: HOME SELF-CARE Condition: Stable Instructions: Peripherally Inserted Central Catheters and Midline Catheters (ED ) Additional Instructions: Please return to the Emergency Department if symptoms worsen or any other concerns. Referrals: None,Stated [Primary Care Provider] - 1-2 days Time of Disposition: 20:26
[2017-06-04 20:53] VITALS: BP 123/74; PULSE 74; TEMP 98.9
== END 2017-06-04 20:53 | disposition home or self-care (01) ==
LOC: EC 19:16
DX: T82.9XXA Unspecified complication of cardiac and vascular prosthetic device, implant and graft, initial encounter (principal); F17.200 Nicotine dependence, unspecified, uncomplicated
CPT/HCPCS: 99283; 96374; J1642

== ENCOUNTER 2018-01-27 13:12 | Emergency (ER) | payer OTHER ==
[2018-01-27 13:27] VITALS: BP 168/76; PULSE 84; RESP 18; TEMP 98.2
--- NOTE | 2018-01-27 13:50 | ED ---
Skin/Abscess/FB HPI - General Chief complaint: Skin/Abscess/Foreign Body Stated complaint: Rash on arms Time Seen by Provider: 01/27/18 13:31 Source: patient, RN notes reviewed, old records reviewed Mode of arrival: ambulatory Limitations: no limitations - History of Present Illness Initial comments: This patient is a 37-year-old male presents emergency department today chief complaint of rash on bilateral forearms. He reports that it started in the antecubital area.. 2. He states that he believes his friends eczema cream and this seemed to help. 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 Patient states that he felt like over the past few days the rash is getting better was continuing to itch. He states that he's had no fever or chills. No other areas of redness or swelling or rashes. He reports he does not always wear long sleeve shirts while he is working. - Related Data Home Medications Medication Instructions Recorded Confirmed Hydrocodone/Acetaminophen [[place] 1 tab PO TID PRN 06/04/17 06/05/17 5-325] Previous Rx's Medication Instructions Recorded Triamcinolone 0.5% Cream [Kenalog 1 applic TOPICAL BID #60 gm 01/27/18 0.5% Cream] Allergies Allergy/AdvReac Type Severity Reaction Status Date / Time No Known Allergies Allergy Verified 01/27/18 13:27 Review of Systems ROS Statement: Those systems with pertinent positive or pertinent negative responses have been documented in the HPI. ROS Other: All systems not noted in ROS Statement are negative. Past Medical History Past Medical History: No Reported History Additional Past Medical History / Comment(s): mrsa History of Any Multi-Drug Resistant Organisms: MRSA Date of last positivie culture/infection: 05/19/17 MDRO Source:: KNEE Past Surgical History: No Surgical Hx Reported Past Anesthesia/Blood Transfusion Reactions: No Reported Reaction Past Psychological History: No Psychological Hx Reported Smoking Status: Current every day smoker Past Alcohol Use History: Occasional Past Drug Use History: Marijuana General Exam - General Exam Comments Initial Comments: Well-appearing 37-year-old male. No distress. Limitations: no limitations General appearance: alert, in no apparent distress Head exam: Present: atraumatic, normocephalic, normal inspection Eye exam: Present: normal appearance, PERRL, EOMI. Absent: scleral icterus, conjunctival injection, periorbital swelling ENT exam: Present: normal exam, mucous membranes moist Neck exam: Present: normal inspection. Absent: tenderness, meningismus, lymphadenopathy Respiratory exam: Present: normal lung sounds bilaterally. Absent: respiratory distress, wheezes, rales, rhonchi, stridor Cardiovascular Exam: Present: regular rate, normal rhythm, normal heart sounds. Absent: systolic murmur, diastolic murmur, rubs, gallop, clicks GI/Abdominal exam: Present: soft Extremities exam: Present: normal inspection, full ROM, normal capillary refill. Absent: tenderness, pedal edema, joint swelling, calf tenderness Back exam: Present: normal inspection Neurological exam: Present: alert, oriented X3, CN II-XII intact, normal gait Psychiatric exam: Present: normal affect, normal mood Skin exam: Present: warm, dry, intact, normal color, erythema (Area of erythematous plaque excoriations her bilateral forearm. Consistent with eczema. ). Absent: rash Course Vital Signs 01/27/18 13:24 Temperature 98.2 F Pulse Rate 84 Respiratory 18 Rate Blood Pressure 168/76 O2 Sat by Pulse 97 Oximetry Medical Decision Making - Medical Decision Making This patient is a 37-year-old male presents emergency room today with Exacerbation of a rash over bilateral forearms reports this happened in the past. He works is an egg worker. Patient rash is consistent with eczema exacerbation. No other areas of rashes. We'll start him on steroid cream. Discussed that he can follow-up with primary care provider or dermatology. Discussed using a morbidly and creams as well. Discussed the importance of wearing longsleeved shirts while working. All questions answered and return parameters were discussed. Disposition Clinical Impression: Eczema, Dermatitis Disposition: HOME SELF-CARE Condition: Good Instructions: Contact Dermatitis (ED), Eczema (ED) Additional Instructions: Patient advised to follow-up with primary care provider. Apply the steroid cream twice a day. Also make sure using hypoallergenic emmoliant lotions. Also follow-up with dermatology if symptoms are continuing to persist. Prescriptions: Triamcinolone 0.5% Cream [Kenalog 0.5% Cream] 1 applic TOPICAL BID #60 gm Referrals: None,Stated [Primary Care Provider] - 1-2 days Cb Carlos MD [STAFF PHYSICIAN] - 1-2 days Chanda Alvarado MD [STAFF PHYSICIAN] - 1-2 days Time of Disposition: 13:46
== END 2018-01-27 13:55 | disposition home or self-care (01) ==
LOC: EC 13:12
DX: L30.9 Dermatitis, unspecified (principal); F17.200 Nicotine dependence, unspecified, uncomplicated; Z86.14 Personal history of Methicillin resistant Staphylococcus aureus infection
CPT/HCPCS: 99283

== ENCOUNTER 2018-03-09 20:31 | Emergency (ER) | payer OTHER ==
[2018-03-09 20:38] VITALS: BP 149/71; PULSE 75; RESP 20; TEMP 98.7
[2018-03-09] MEDS ORDERED: PROPARACAINE 0.5% OPHTH DROPS 15 ML BTL BOTH EYES STA (20:45)
--- NOTE | 2018-03-09 21:56 | CT ---
EXAMINATION TYPE: CT orbits wo con DATE OF EXAM: 03/09/2018 COMPARISON: NONE HISTORY: Left orbit swelling and pain. CT DLP: 312.3 mGycm Automated exposure control for dose reduction was used. FINDINGS: Very mild preseptal left sided periorbital soft tissue swelling is seen, however subtle post septal s oft tissue swelling is also seen such as on series 4 image 24 and 23 surrounding the optic nerve in t he intraconal fat. No abscesses present. Globes are symmetric and lenses are in place. No subcutaneou s emphysema. No radiopaque foreign body. The visualized paranasal sinuses are well aerated other than minimal inspissated secretions within th e right frontal sinus. Mastoid air cells are also well aerated as are the middle ear cavities. No yamileth nopathy is seen within the visualized neck. Evaluation of intracranial structures is limited given te [place]. Temporomandibular joints are symmetric. IMPRESSION: VERY MINIMAL PRE AND POST SEPTAL SOFT TISSUE SWELLING ON THE LEFT IN COMPARISON TO THE RIGHT CONCERNI NG FOR POST SEPTAL CELLULITIS WITHOUT ABSCESS FORMATION.
--- NOTE | 2018-03-09 22:11 | ED ---
General Adult HPI - General Chief complaint: Eye Problems Stated complaint: left eye injury Time Seen by Provider: 03/09/18 20:44 Source: patient, RN notes reviewed, old records reviewed Mode of arrival: ambulatory Limitations: no limitations - History of Present Illness Initial comments: Patient is 37-year-old male presents emergency room and left eye pain. He reports that he was using a jackhammer and the machine slipped and hit him in the left eye. He reports that there are some swelling and pain. Patient reports that his conjunctiva is now red and swollen. Patient reports some pain with extraocular eye movements. Denies any visual changes. He states that it seems to be somewhat blurry and his eyes been draining more. He reports that he feels like the white part of his eye is not bloody has popped out.Patient denies any recent fever, chills, shortness of breath, chest pain, back pain, abdominal pain, nausea vomiting, numbness or tingling, dysuria or hematuria, constipation or diarrhea, headaches or visual changes, or any other current symptoms - Related Data Home Medications Medication Instructions Recorded Confirmed Hydrocodone/Acetaminophen [[place] 1 tab PO TID PRN 06/04/17 03/09/18 5-325] Previous Rx's Medication Instructions Recorded Erythromycin Ophth Oint [[place] 1 applic LEFT EYE QID #1 gm 03/09/18 Ophth Oint] Allergies Allergy/AdvReac Type Severity Reaction Status Date / Time No Known Allergies Allergy Verified 03/09/18 20:37 Review of Systems ROS Statement: Those systems with pertinent positive or pertinent negative responses have been documented in the HPI. ROS Other: All systems not noted in ROS Statement are negative. Past Medical History Past Medical History: No Reported History Additional Past Medical History / Comment(s): mrsa History of Any Multi-Drug Resistant Organisms: MRSA Date of last positivie culture/infection: 05/19/17 MDRO Source:: KNEE Past Surgical History: No Surgical Hx Reported Past Anesthesia/Blood Transfusion Reactions: No Reported Reaction Past Psychological History: No Psychological Hx Reported Smoking Status: Current every day smoker Past Alcohol Use History: Occasional Past Drug Use History: Marijuana General Exam - General Exam Comments Initial Comments: 37-year-old male. Alert. No acute distress. Limitations: no limitations General appearance: alert, in no apparent distress Head exam: Present: atraumatic, normocephalic, normal inspection Eye exam: Present: PERRL, EOMI, other (Patient has conjunctival hemorrhage of the sclera of the left eye. No hyphema. Pupils are equal and reactive. Ecchymosis over the inferior orbit and superior orbit.). Absent: normal appearance, scleral icterus, conjunctival injection, periorbital swelling Expanded Eyelids: Erythema: Left Pupils: Regular, Round: Left Sclera/Conjunctival: Hemorrhage: Left Anterior chamber: Normal Inspection: Bilateral Posterior chamber: Deferred: Bilateral Visual acuity (R) = 20/: 25 Visual acuity (L) = 20/: 40 IOP (R) in mmH IOP (L) in mmH IOP measured with: [employer] ENT exam: Present: normal exam, mucous membranes moist Neck exam: Present: normal inspection. Absent: tenderness, meningismus, lymphadenopathy Respiratory exam: Present: normal lung sounds bilaterally. Absent: respiratory distress, wheezes, rales, rhonchi, stridor Cardiovascular Exam: Present: regular rate, normal rhythm, normal heart sounds. Absent: systolic murmur, diastolic murmur, rubs, gallop, clicks GI/Abdominal exam: Present: soft, normal bowel sounds. Absent: distended, tenderness, guarding, rebound, rigid Extremities exam: Present: normal inspection, full ROM, normal capillary refill. Absent: tenderness, pedal edema, joint swelling, calf tenderness Back exam: Present: normal inspection Course Vital Signs 03/09/18 20:34 Temperature 98.7 F Pulse Rate 75 Respiratory 20 Rate Blood Pressure 149/71 O2 Sat by Pulse 100 Oximetry Medical Decision Making - Medical Decision Making 37-year-old male presents with left eye pain and redness after he hit his eye 2 days ago with a jackhammer that jumped up and hit his eye. He has conjunctival hemorrhage. No hyphema. Pupils are equal and reactive to light. Intraocular pressures in the left eye 48, visual acuity is 20/40. The right eye intraocular pressure was 24 and visual acuity was 20/25. Patient had no evidence of any foreign body on fluorescein eye exam. Patient case discussed with Dr. Hunter. He also examined the patient. We contacted web marketing intern doctor for heme. Recommended applying erythromycin eye ointment every 4 hours. He'll be following up with Dr. Odonnell in the morning. Discussed return parameters and he has any significant visual changes decreased visual acuity or sinus symptoms of retinal detachment. CT of the orbits was completed as well, and evidence of soft tissue swelling over many fractures. There is no concern for post septal cellulitis is related to trauma and no concern for infectious etiology. Patient informed of all these results. He plans follow-up with ophthalmology tomorrow. - Radiology Data Radiology results: report reviewed CT or rashes very minimal pre-and post soft tissue filling in the left comparison to the right concerning for post septal cellulitis without abscess formation. Disposition Clinical Impression: Conjunctival hemorrhage of left eye, Eye contusion Disposition: HOME SELF-CARE Condition: Good Instructions: Black Eye (ED), Eye Pain (ED) Additional Instructions: Patient has a follow-up with Dr. aida sims in the morning. Recommended icing the eye. Apply the antibiotic eye ointment every 4 hours. Return to the emergency department if any alarming signs or symptoms occur. Prescriptions: Erythromycin Ophth Oint [Romycin Ophth Oint] 1 applic LEFT EYE QID #1 gm Is patient prescribed a controlled substance at d/c from ED?: No If prescribed controlled substance>3 days was MAPS reviewed?: No When asked, does pt state using other controlled substances?: No Referrals: None,Stated [Primary Care Provider] - 1-2 days Matilda Odonnell MD [STAFF PHYSICIAN] - 1-2 days Time of Disposition: 22:53
[2018-03-09] MEDS ORDERED: ERYTHROMYCIN 5 MG/GM OPHTH OINT 3.5 GM TUBE LEFT EYE STA (22:52)
== END 2018-03-09 23:15 | disposition home or self-care (01) ==
LOC: EC 20:31
DX: S05.12XA Contusion of eyeball and orbital tissues, left eye, initial encounter (principal); H11.32 Conjunctival hemorrhage, left eye; F17.200 Nicotine dependence, unspecified, uncomplicated; Z86.14 Personal history of Methicillin resistant Staphylococcus aureus infection; W31.89XA Contact with other specified machinery, initial encounter; Y99.0 Civilian activity done for income or pay; Y92.69 Other specified industrial and construction area as the place of occurrence of the external cause
CPT/HCPCS: 70480; 99284

== ENCOUNTER 2018-04-03 11:23 | Emergency (ER) | payer OTHER ==
[2018-04-03 11:33] VITALS: BP 114/61; PULSE 59; RESP 20; TEMP 98.1
--- NOTE | 2018-04-03 13:03 | ED ---
General Adult HPI - General Chief complaint: Animal Bite Stated complaint: Cat bite Time Seen by Provider: 04/03/18 12:01 Source: patient, RN notes reviewed Mode of arrival: ambulatory Limitations: no limitations - History of Present Illness Initial comments: 37-year-old male presents to the emergency department for a chief complaint of Bites to the right third finger. Patient states this occurred last night. Patient is concerned for rabies because his cat normally doesn't by him. Cat is unvaccinated. Patient states it is an outdoor cat and he can probably monitor it. Patient states he cleaned the finger well. Patient denies any other symptoms besides the cat bite. Patient has no other complaints at this time including shortness of breath, chest pain, abdominal pain, nausea or vomiting, headache, or visual changes. - Related Data Previous Rx's Medication Instructions Recorded Amoxicillin/Potassium Clav 1 tab PO Q12HR #20 tab 04/03/18 [Augmentin 875-125 Tablet] Allergies Allergy/AdvReac Type Severity Reaction Status Date / Time No Known Allergies Allergy Verified 04/03/18 12:12 Review of Systems ROS Statement: Those systems with pertinent positive or pertinent negative responses have been documented in the HPI. ROS Other: All systems not noted in ROS Statement are negative. Past Medical History Past Medical History: No Reported History Additional Past Medical History / Comment(s): mrsa History of Any Multi-Drug Resistant Organisms: MRSA Date of last positivie culture/infection: 05/19/17 MDRO Source:: KNEE Past Surgical History: No Surgical Hx Reported Additional Past Surgical History / Comment(s): right knee r/t MRSA Past Anesthesia/Blood Transfusion Reactions: No Reported Reaction Past Psychological History: No Psychological Hx Reported Smoking Status: Current every day smoker Past Alcohol Use History: Occasional Past Drug Use History: Marijuana General Exam Limitations: no limitations General appearance: alert, in no apparent distress Head exam: Present: atraumatic, normocephalic, normal inspection Eye exam: Present: normal appearance, PERRL, EOMI. Absent: scleral icterus, conjunctival injection, periorbital swelling ENT exam: Present: normal exam, mucous membranes moist Neck exam: Present: normal inspection. Absent: tenderness, meningismus, lymphadenopathy Respiratory exam: Present: normal lung sounds bilaterally. Absent: respiratory distress, wheezes, rales, rhonchi, stridor Cardiovascular Exam: Present: regular rate, normal rhythm, normal heart sounds. Absent: systolic murmur, diastolic murmur, rubs, gallop, clicks Extremities exam: Present: full ROM (Full range of motion of the right hand including the affected right third digit.), normal capillary refill (Refill less than 2 seconds. Radial pulse 2+ in the right upper extremity.), other ( There is a small shallow puncture bite on the palmar aspect of the distal phalanx right third digit. No signs of cellulitic infection or drainage. No open wounds.). Absent: tenderness (No tenderness to the right third digit.), pedal edema, joint swelling (No swelling noted in the right third digit.) Course Vital Signs 04/03/18 11:29 Temperature 98.1 F Pulse Rate 59 L Respiratory 20 Rate Blood Pressure 114/61 O2 Sat by Pulse 98 Oximetry Medical Decision Making - Medical Decision Making 37-year-old male presents to the emergency department for a chief complaint of right third digit x 1 day. Patient has no symptoms at this time. Patient is concerned for rabies because he states his cat normally doesn't bite him. Patient is up-to-date on his tetanus shot as of a few years ago. On exam there is a small shallow puncture bite on the palmar aspect of the distal right third digit. Patient has full range of motion of the finger. No swelling in the finger. No signs of infection. Neurovascular intact. Patient does have a ring on the right third digit. I offered to cut the ring off but patient refused. The patient states he does not want it cut off. 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 Patient's finger was soaked and soap and water and cleaned thoroughly. It does not need be sutured or closed his is no open wound. I offered patient rabies prophylaxis which she refused. Patient states he was not aware of the additional days for shots and has a lapse in his insurance so has changed his mind and does not want prophylactic treatment for rabies. Patient will be treated with Augmentin for 10 days. He is to watch for any signs of infection which were discussed with him at length. He will return if these occur. He will also keep an eye on the ring on his finger and cut it off if needed. He will follow-up in one to 2 days with primary care who was referred to him. Disposition Clinical Impression: Cat bite Disposition: HOME SELF-CARE Condition: Good Instructions: Animal Bite (ED) Additional Instructions: Please take antibiotic as directed. Please monitor for any worsening symptoms or signs of infection such as spreading redness, streaking redness, or fever and return if these occur.. If finger start to swell make sure to remove the ring. Follow-up with primary care in 1-2 days. Prescriptions: Amoxicillin/Potassium Clav [Augmentin 875-125 Tablet] 1 tab PO Q12HR #20 tab Is patient prescribed a controlled substance at d/c from ED?: No Referrals: Wesley Cote MD [STAFF PHYSICIAN] - 1-2 days Time of Disposition: 13:02
== END 2018-04-03 13:08 | disposition home or self-care (01) ==
LOC: EC 11:23
DX: S61.252A Open bite of right middle finger without damage to nail, initial encounter (principal); F17.200 Nicotine dependence, unspecified, uncomplicated; Z86.14 Personal history of Methicillin resistant Staphylococcus aureus infection; W55.01XA Bitten by cat, initial encounter
CPT/HCPCS: 99283

== ENCOUNTER 2021-03-29 13:41 | Emergency (ER) | payer OTHER ==
[2021-03-29 14:23] VITALS: BP 130/74; PULSE 90; RESP 18; TEMP 98.1
[2021-03-29 14:56] LABS: Appearance,Urine Clear (Clear); Bilirubin,Urine Negative (Negative); Blood,Urine Negative (Negative); Color,Urine Yellow; Glucose,Urine (UA) Negative (Negative); Ketones,Urine Negative (Negative); Leukocyte Esterase,Urine Negative (Negative); Nitrite,Urine Negative (Negative); PH, Urine 6.5 (5.0-8.0); Protein,Urine Negative (Negative); Specific Gravity,Urine 1.015 (1.001-1.035); Urobilinogen,Urine <2.0 mg/dL (<2.0)
[2021-03-31 16:21] LABS: C. trachomatis,PCR Negative (Neg,Equiv); Chlamydia trachomatis Source Urine; N. gonorrhoeae,PCR Negative (Neg,Equiv); Neisseria Source Urine
== END 2021-03-29 15:31 | disposition left against medical advice (07) ==
LOC: EC 13:41
DX: Z53.1 Procedure and treatment not carried out because of patient's decision for reasons of belief and group pressure (principal)
CPT/HCPCS: 81003; 87491; 87591; 99499

== ENCOUNTER 2021-03-30 00:12 | Emergency (ER) | payer OTHER ==
[2021-03-30] MEDS ORDERED: AZITHROMYCIN 500 MG TAB PO STA (00:13)
[2021-03-30] MEDS ORDERED: cefTRIAXone 250 MG VIAL IM STA (00:13)
--- NOTE | 2021-03-30 00:14 | ED ---
Male Urogenital HPI - General Stated complaint: STD Testing Time Seen by Provider: 03/30/21 00:13 - Related Data Previous Rx's Medication Instructions Recorded Amoxicillin/Potassium Clav 1 tab PO Q12HR #20 tab 04/03/18 [Augmentin 875-125 Tablet] Allergies Allergy/AdvReac Type Severity Reaction Status Date / Time No Known Allergies Allergy Verified 03/30/21 00:16 Review of Systems ROS Statement: Those systems with pertinent positive or pertinent negative responses have been documented in the HPI. ROS Other: All systems not noted in ROS Statement are negative. Past Medical History Past Medical History: No Reported History Additional Past Medical History / Comment(s): mrsa History of Any Multi-Drug Resistant Organisms: MRSA Date of last positivie culture/infection: 05/19/17 MDRO Source:: KNEE Past Surgical History: No Surgical Hx Reported Additional Past Surgical History / Comment(s): right knee r/t MRSA Past Anesthesia/Blood Transfusion Reactions: No Reported Reaction Past Psychological History: No Psychological Hx Reported Smoking Status: Current every day smoker Past Alcohol Use History: Occasional Past Drug Use History: Marijuana Course Vital Signs 03/30/21 00:12 Temperature 97.8 F Pulse Rate 85 Respiratory 20 Rate Blood Pressure 130/78 O2 Sat by Pulse 100 Oximetry Disposition Clinical Impression: Urethritis, Tinea cruris Disposition: HOME SELF-CARE Condition: Good Instructions (If sedation given, give patient instructions): Nonspecific Urethritis in Men (ED), Jock Itch (ED) Is patient prescribed a controlled substance at d/c from ED?: No Referrals: None,Stated [Primary Care Provider] - 1-2 days
[2021-03-30 00:16] VITALS: BP 130/78; PULSE 85; RESP 20; TEMP 97.8
[2021-03-30] MEDS ORDERED: NYSTAT-TRIAMCIN 100,000-0.1 UNIT/GM-% CREAM 30 GM TUBE TOPICAL STA (00:58)
[2021-03-30] MEDS ORDERED: TRIAMCINOLONE 0.1% CREAM 80 GM TUBE TOPICAL ONE (01:15)
[2021-03-30] MEDS ORDERED: NYSTATIN 100,000UNIT/GM CREAM 30 GM TUBE TOPICAL ONE (01:15)
[2021-03-30 01:22] LABS: Appearance,Urine Clear (Clear); Bilirubin,Urine Negative (Negative); Blood,Urine Negative (Negative); Color,Urine Light Yellow; Glucose,Urine (UA) Negative (Negative); Ketones,Urine Negative (Negative); Leukocyte Esterase,Urine Negative (Negative); Nitrite,Urine Negative (Negative); Protein,Urine Negative (Negative); Specific Gravity,Urine 1.015 (1.001-1.035); Urobilinogen,Urine <2.0 mg/dL (<2.0)
[2021-03-31 16:20] LABS: C. trachomatis,PCR Negative (Neg,Equiv); Chlamydia trachomatis Source Urine; N. gonorrhoeae,PCR Negative (Neg,Equiv); Neisseria Source Urine
== END 2021-03-30 01:52 | disposition home or self-care (01) ==
LOC: EC 00:12
DX: N34.2 Other urethritis (principal); B35.6 Tinea cruris; F17.200 Nicotine dependence, unspecified, uncomplicated; F12.90 Cannabis use, unspecified, uncomplicated
CPT/HCPCS: 81003; 87491; 87591; 99282; J0696; 96372

== ENCOUNTER 2022-05-07 18:25 | Emergency (ER) | payer OTHER ==
[2022-05-07 18:57] VITALS: BP 119/70; PULSE 91; RESP 18; TEMP 98.5
[2022-05-07] MEDS ORDERED: HYDROcodone/APAP 5-325MG 1 EACH TAB PO STA (20:24)
[2022-05-07 21:46] LABS: Appearance,Urine Clear (Clear); Bacteria,Urine Rare /hpf; Bilirubin,Urine Negative (Negative); Blood,Urine Negative (Negative); Budding Yeast,Urine Occasional /hpf; Color,Urine Light Yellow; Glucose,Urine (UA) Negative (Negative); Hyaline Casts,Urine 1 /lpf (0-2); Ketones,Urine Negative (Negative); Leukocyte Esterase,Urine Trace (Negative); Mucus,Urine Rare /hpf; Nitrite,Urine Negative (Negative); Protein,Urine Negative (Negative); RBC,Urine 1 /hpf (0-5); Specific Gravity,Urine 1.021 (1.001-1.035); Squamous Epithelial Cell,Urine <1 /hpf (0-4); Urobilinogen,Urine <2.0 mg/dL (<2.0); WBC,Urine 8 /hpf (0-5)
[2022-05-07] MEDS ORDERED: SULFAMETHOX-TMP 800-160MG 1 EACH TAB PO STA (22:13)
--- NOTE | 2022-05-07 22:53 | ED ---
General Adult HPI - General Chief complaint: Skin/Abscess/Foreign Body Stated complaint: Sore on elbow Time Seen by Provider: 05/07/22 19:39 Source: patient, RN notes reviewed Mode of arrival: ambulatory Limitations: no limitations - History of Present Illness Initial comments: 41-year-old male presents to the emergency department for evaluation of redness and scabbed over sore on his right upper forearm. States he has a history of MRSA and has recently had other "boils" elsewhere. Has not been on any antibiotics recently. Complains of moderate amount of discomfort. Also reports urinary discomfort including frequency and urgency x1 week. States he and his partner are monogamous, but she has been treated for Trich and BV. He denies any fever, chills, chest pain, shortness of breath, pain/burning/discharge from penis. Denies any perineal sores or lesions. - Related Data Previous Rx's Medication Instructions Recorded Amoxicillin/Potassium Clav 1 tab PO Q12HR #20 tab 04/03/18 [Augmentin 875-125 Tablet] Sulfamethox-Tmp 800-160Mg [Bactrim 1 each PO Q12HR #20 tab 05/07/22 Ds] Allergies Allergy/AdvReac Type Severity Reaction Status Date / Time No Known Allergies Allergy Verified 03/30/21 00:16 Review of Systems ROS Statement: Those systems with pertinent positive or pertinent negative responses have been documented in the HPI. ROS Other: All systems not noted in ROS Statement are negative. Past Medical History Past Medical History: No Reported History Additional Past Medical History / Comment(s): mrsa History of Any Multi-Drug Resistant Organisms: MRSA Date of last positivie culture/infection: 05/26/21 MDRO Source:: Scalp Past Surgical History: No Surgical Hx Reported Additional Past Surgical History / Comment(s): right knee r/t MRSA Past Anesthesia/Blood Transfusion Reactions: No Reported Reaction Past Psychological History: No Psychological Hx Reported Smoking Status: Current every day smoker Past Alcohol Use History: Occasional Past Drug Use History: Marijuana General Exam Limitations: no limitations General appearance: alert, in no apparent distress, other (Well-developed, well- nourished male in no acute distress. Initial temperature 98.5, pulse 91, respirations 18, blood pressure 119/70, pulse ox 98% on room air.) ENT exam: Present: normal exam, normal oropharynx, mucous membranes moist Respiratory exam: Present: normal lung sounds bilaterally. Absent: respiratory distress, wheezes, rales, rhonchi, stridor Cardiovascular Exam: Present: regular rate, normal rhythm, normal heart sounds. Absent: systolic murmur, diastolic murmur, rubs, gallop, clicks GI/Abdominal exam: Present: soft, normal bowel sounds. Absent: distended, tenderness, guarding, rebound, rigid exam: Present: normal inspection Neurological exam: Present: alert, oriented X3, CN II-XII intact Psychiatric exam: Present: normal affect, normal mood Skin exam: Present: warm, dry Expanded Type of lesion: Present: abscess (rt posterolateral upper forearm; erythematous base 3cm x5cm, indurated, scabbed area with scant drainage around it) Course Vital Signs 05/07/22 18:53 Temperature 98.5 F Pulse Rate 91 Respiratory 18 Rate Blood Pressure 119/70 O2 Sat by Pulse 98 Oximetry - Reevaluation(s) Reevaluation #1: 05/07/22 22:05 Lengthy discussion with patient about infectious processes, sources, transmission, and prevention given his history of MRSA and recurrence of abscesses. Also discussed his urinary complaints at length. Sifted through his concern that an infectious source such as STI or UTI was causing his complaint of morning urgency. Patient and partner are present during discussion of STI transmission. Both confirm that they have had previous sexual partners and have been tested since getting back together several months ago. They are agreeable to STI testing. Rapid Trich only able to be run on female patients therefore will treat patient if his partner's is positive. Discussed prophylactic treatment, however, given that neither has symptoms aside from urinary, they elect to wait for results. Encouraged to use protection. Medical Decision Making - Medical Decision Making 41-year-old male with a past medical history of MRSA and IV drug abuse presents to the emergency department for evaluation of multiple complaints including urinary urgency, concern for Trichomonas, and abscess to the right forearm. Upon exam, patient is well-appearing and in no acute distress. He is afebrile with stable vital signs. Physical exam findings are unremarkable with the exception of the abscess on his right forearm. Wound was cultured. Urinalysis was unremarkable and patient is passing urine without difficulty. GC and chlamydia cultures pending. Treatment was deferred, the patient and partner encouraged to use protection. Prescribed antibiotic for abscess. Instructed to follow up with PCP for recheck. Return parameters were discussed in detail. Patient verbalizes understanding and agrees with this plan. I attending: - Lab Data Lab Results 05/07/22 Range/Units 20:42 Urine Color Light Yellow Urine Appearance Clear (Clear) Urine pH 6.0 (5.0-8.0) Ur Specific [place] 1.021 (1.001-1.035) Urine Protein Negative (Negative) Urine Glucose (UA) Negative (Negative) Urine Ketones Negative (Negative) Urine Blood Negative (Negative) Urine Nitrite Negative (Negative) Urine Bilirubin Negative (Negative) Urine Urobilinogen <2.0 (<2.0) mg/dL Ur Leukocyte Esterase Trace H (Negative) Urine RBC 1 (0-5) /hpf Urine WBC 8 H (0-5) /hpf Ur Squamous Epith Cells <1 (0-4) /hpf Urine Bacteria Rare H (None) /hpf Hyaline Casts 1 (0-2) /lpf Urine Mucus Rare H (None) /hpf Urine Yeast (Budding) Occasional H (None) /hpf Disposition Clinical Impression: Abscess of right forearm Disposition: HOME SELF-CARE Condition: Stable Instructions (If sedation given, give patient instructions): Abscess (ED) Additional Instructions: Take antibiotic until it's gone. Obtain Hibiclens soap from local drug store and wash trunk and extremities. Keep wound covered. May take Tylenol or Motrin if needed for pain. You should establish with a PCP for further evaluation and treatment. Return to the emergency department with any new, worsening, or concerning symptoms. Prescriptions: Sulfamethox-Tmp 800-160Mg [Bactrim Ds] 1 each PO Q12HR #20 tab Is patient prescribed a controlled substance at d/c from ED?: No Referrals: None,Stated [Primary Care Provider] - 1-2 days
[2022-05-10 07:44] LABS: C. trachomatis,PCR Negative (Neg,Equiv); Chlamydia trachomatis Source Urine; N. gonorrhoeae,PCR Negative (Neg,Equiv); Neisseria Source Urine
== END 2022-05-07 23:22 | disposition home or self-care (01) ==
LOC: EC 18:25
DX: L02.413 Cutaneous abscess of right upper limb (principal); F17.200 Nicotine dependence, unspecified, uncomplicated
CPT/HCPCS: 81001; 87070; 87077; 87186; 87205; 87491; 87591; 99283

== ENCOUNTER 2022-10-25 05:07 | Observation (INO) | payer OTHER ==
[2022-10-25 05:44] LABS: Basophils % (A) 1 %; Eosinophils # (A) 0.3 k/uL (0-0.7); Eosinophils % (A) 5 %; HGB 14.1 gm/dL (13.0-17.5); Lymphocytes # (A) 1.7 k/uL (1.0-4.8); Lymphocytes % (A) 23 %; MCH 29.7 pg (25.0-35.0); MCHC 33.5 g/dL (31.0-37.0); MCV 88.4 fL (80.0-100.0); Mean Platelet Volume 6.9; Monocytes # (A) 0.4 k/uL (0-1.0); Monocytes % (A) 6 %; Neutrophils # (A) 4.8 k/uL (1.3-7.7); Neutrophils % (A) 64 %; Platelet Count 297 k/uL (150-450); RBC 4.75 m/uL (4.30-5.90); RDW 12.5 % (11.5-15.5); WBC 7.5 k/uL (3.8-10.6)
--- NOTE | 2022-10-25 05:54 | XR ---
EXAMINATION TYPE: XR chest 2V DATE OF EXAM: 10/25/2022 COMPARISON: NONE HISTORY: Chest pain TECHNIQUE: FINDINGS: Heart and mediastinum are normal. Lungs are clear. Diaphragm is normal. Point thorax appear s normal. IMPRESSION: Normal chest.
[2022-10-25 06:04] LABS: ALT 22 U/L (4-49); AST 25 U/L (17-59); African American GFR (CKD) >90 (>60 ml/min/1.73 sqM); Albumin 4.2 g/dL (3.5-5.0); Alkaline Phosphatase 57 U/L (38-126); Anion Gap 5 mmol/L; Blood Urea Nitrogen 16 mg/dL (9-20); Calcium 8.7 mg/dL (8.4-10.2); Carbon Dioxide 27 mmol/L (22-30); Chloride 106 mmol/L (98-107); Glucose 99 mg/dL (74-99); Magnesium 1.9 mg/dL (1.6-2.3); Non-African American GFR(CKD) >90 (>60 ml/min/1.73 sqM); Potassium 4.2 mmol/L (3.5-5.1); Sodium 138 mmol/L (137-145); Total Bilirubin 0.2 mg/dL (0.2-1.3); Total Protein 6.5 g/dL (6.3-8.2)
[2022-10-25] MEDS ORDERED: KETOROLAC 15 MG/ML 1 ML VIAL IVP STA (06:13)
[2022-10-25] MEDS ORDERED: ORPHENADRINE 30 MG/ML 2 ML VIAL IVP STA (06:13)
--- NOTE | 2022-10-25 06:51 | ED ---
Chest Pain HPI - General Chief Complaint: Chest Pain Stated Complaint: Chest Pain, Back Pain Time Seen by Provider: 10/25/22 05:28 Source: patient, RN notes reviewed Mode of arrival: wheelchair Limitations: no limitations - History of Present Illness Initial Comments: 42-year-old male presents emergency Department with chief complaint of chest pain. Patient states that it on his left side is complaining of some back pain seems side. Patient states that he has some pleuritic chest pain and feels mildly short of breath no cough, cold like symptoms no recent fevers chills nausea vomiting diarrhea constipation. Patient states that he is a daily smoker has a prior cardiac disease. Patient states that he had some issues with his back in the past but this does not feel anything similar. - Related Data Previous Rx's Medication Instructions Recorded Amoxicillin/Potassium Clav 1 tab PO Q12HR #20 tab 04/03/18 [Augmentin 875-125 Tablet] Sulfamethox-Tmp 800-160Mg [Bactrim 1 each PO Q12HR #20 tab 05/07/22 Ds] Allergies Allergy/AdvReac Type Severity Reaction Status Date / Time No Known Allergies Allergy Verified 10/25/22 05:10 Review of Systems ROS Statement: Those systems with pertinent positive or pertinent negative responses have been documented in the HPI. ROS Other: All systems not noted in ROS Statement are negative. EKG Findings - EKG Comments: EKG Findings:: EKG performed at 6:59 sinus rhythm rate of 64 [place] 162 QRS 101 QT/QTC 384/393 - EKG Results: EKG: interpreted by JUVENCIO Past Medical History Past Medical History: No Reported History Additional Past Medical History / Comment(s): mrsa History of Any Multi-Drug Resistant Organisms: MRSA Date of last positivie culture/infection: 05/07/22 MDRO Source:: Right Elbow Past Surgical History: No Surgical Hx Reported Additional Past Surgical History / Comment(s): right knee r/t MRSA Past Anesthesia/Blood Transfusion Reactions: No Reported Reaction Past Psychological History: No Psychological Hx Reported Smoking Status: Current every day smoker Past Alcohol Use History: Occasional Past Drug Use History: Marijuana General Exam Limitations: no limitations General appearance: alert, in no apparent distress Head exam: Present: atraumatic, normocephalic, normal inspection Eye exam: Present: normal appearance, PERRL, EOMI. Absent: scleral icterus, conjunctival injection, periorbital swelling ENT exam: Present: normal exam, normal oropharynx, mucous membranes moist, TM's normal bilaterally Neck exam: Present: normal inspection, full ROM. Absent: tenderness, meningismus, lymphadenopathy Respiratory exam: Present: normal lung sounds bilaterally. Absent: respiratory distress, wheezes, rales, rhonchi, stridor Cardiovascular Exam: Present: regular rate, normal rhythm, normal heart sounds. Absent: systolic murmur, diastolic murmur, rubs, gallop, clicks GI/Abdominal exam: Present: soft, normal bowel sounds. Absent: distended, tenderness, guarding, rebound, rigid Course Vital Signs 10/25/22 10/25/22 05:10 06:08 Temperature 97.9 F Pulse Rate 77 68 Respiratory 16 16 Rate Blood Pressure 130/87 110/71 O2 Sat by Pulse 100 98 Oximetry Chest Pain MDM - MDM 42-year-old presented for left-sided chest pain, back pain. Patient's initial workup was negative this is not reproducible on exam. Patient will be admitted for cardiac rule out. Disposition Clinical Impression: Chest pain Disposition: ADMITTED IP TO THIS HOSP Condition: Fair Referrals: None,Stated [Primary Care Provider] - 1-2 days Time of Disposition: 07:31
[2022-10-25] MEDS ORDERED: ASPIRIN 81 MG PO STA (07:49)
[2022-10-25] MEDS ORDERED: NITROGLYCERIN SL TABS 0.4 MG TAB SUBLINGUAL PRN (07:49)
[2022-10-25] MEDS ORDERED: ATORVASTATIN 40 MG TAB PO SCH (09:15)
[2022-10-25 09:18] VITALS: RESP 15
--- NOTE | 2022-10-25 09:51 | P.CRDCN ---
History of Present Illness Consult date: 10/25/22 Requesting physician: Katy Chong Reason for Consult (text): chest pain Chief complaint: chest pain History of present illness: This is a 42-year-old gentleman with no significant past medical history does not follow regularly with the physician. He does smoke just under a pack of cigarettes a day as well as uses marijuana daily. Presented to the emergency department with complaints of chest pressure, left-sided as well as some left- sided neck and shoulder pain. He's had issues with his left shoulder and and neck in the past and has seen a chiropractor with relief. The pain started when he was walking to the bathroom. It was persistent so he presented to the emergency department. EKG on admission showed sinus mechanism with no evidence of ischemia. Troponin has been negative 2. D-dimer was negative and all other laboratory values were unremarkable. Chest x-ray was normal. Vital signs have been stable and he's been afebrile. Upon examination he is resting comfortably on a stretcher in the emergency department. He is initially comfortable then develops a very brief sharp discomfort in the left chest but overall denies any complaints. He does complain of some mild dyspnea on exertion which he relates to his smoking. Denies any exertional chest discomfort. Denies any orthopnea, PND or edema. Denies any palpitations, dizziness or lightheadedness. He's had no nausea, vomiting or bleeding. Past Medical History Past Medical History: No Reported History Additional Past Medical History / Comment(s): mrsa History of Any Multi-Drug Resistant Organisms: MRSA Date of last positivie culture/infection: 05/07/22 MDRO Source:: Right Elbow Past Surgical History: No Surgical Hx Reported Additional Past Surgical History / Comment(s): right knee r/t MRSA Past Anesthesia/Blood Transfusion Reactions: No Reported Reaction Past Psychological History: No Psychological Hx Reported Smoking Status: Current every day smoker Past Alcohol Use History: Occasional Past Drug Use History: Marijuana Medications and Allergies Home Medications Medication Instructions Recorded Confirmed Type No Known Home Medications 10/25/22 10/25/22 History Allergies Allergy/AdvReac Type Severity Reaction Status Date / Time No Known Allergies Allergy Verified 10/25/22 08:22 Physical Exam Vitals: Vital Signs Temp Pulse Pulse Resp BP BP Pulse Ox 10/25/22 09:17 97.5 F L 49 L 15 115/73 100 12/29/22 08:05 98 F 82 18 135/73 99 10/25/22 06:08 68 16 110/71 98 10/25/22 05:10 97.9 F 77 16 130/87 100 Intake and Output 10/24/22 10/25/22 10/25/22 22:59 06:59 14:59 Other: Weight 63.503 kg 63.503 kg PHYSICAL EXAMINATION: This is a 42-year-old male in no apparent distress at the time of my examination. HEENT: Head is atraumatic, normocephalic. Pupils are equal, round. Sclerae anicteric. Conjunctivae are clear. Mucous membranes of the mouth are moist. Neck is supple. There is no elevated jugular venous pressure. No carotid bruit is heard. CHEST EXAMINATION: Clear to auscultation bilaterally. No wheezes rales or rhonchi. Respirations even and nonlabored. HEART EXAMINATION: Heart regular, positive S1 and S2. No S3. No S4. No clicks, rubs or murmurs. ABDOMEN: Soft, nontender. Bowel sounds are heard. No organomegaly noted. EXTREMITIES: 2+ peripheral pulses with no evidence of peripheral edema and no calf tenderness noted. NEUROLOGIC EXAMINATION: Patient is awake, alert and oriented x3. Results 10/25/22 05:34 10/25/22 05:34 Cardiac Enzymes 10/25/22 10/25/22 10/25/22 Range/Units 05:34 05:34 08:30 AST 25 (17-59) U/L Troponin I <0.012 <0.012 (0.000-0.034) ng/mL CBC 10/25/22 Range/Units 05:34 WBC 7.5 (3.8-10.6) k/uL RBC 4.75 (4.30-5.90) m/uL Hgb 14.1 (13.0-17.5) gm/dL Hct 42.0 (39.0-53.0) % Plt Count 297 (150-450) k/uL Comprehensive Metabolic Panel 10/25/22 Range/Units 05:34 Sodium 138 (137-145) mmol/L Potassium 4.2 (3.5-5.1) mmol/L Chloride 106 (98-107) mmol/L Carbon Dioxide 27 (22-30) mmol/L BUN 16 (9-20) mg/dL Creatinine 0.92 (0.66-1.25) mg/dL Glucose 99 (74-99) mg/dL Calcium 8.7 (8.4-10.2) mg/dL AST 25 (17-59) U/L ALT 22 (4-49) U/L Alkaline Phosphatase 57 (38-126) U/L Total Protein 6.5 (6.3-8.2) g/dL Albumin 4.2 (3.5-5.0) g/dL Current Medications Generic Name Dose Route Start Last Admin Trade Name Freq PRN Reason Stop Dose Admin Aspirin 325 mg 10/26/22 09:00 Aspirin 325 Mg Tab PO DAILY MARLA Atorvastatin Calcium 40 mg 10/25/22 09:15 Atorvastatin 40 Mg Tab PO DAILY MARLA Nitroglycerin 0.4 mg 10/25/22 07:49 Nitroglycerin Sl Tabs 0.4 Mg Tab SUBLINGUAL Q5M PRN Chest Pain Intake and Output 10/24/22 10/25/22 10/25/22 22:59 06:59 14:59 Other: Weight 63.503 kg 63.503 kg Patient Weight 10/26/22 06:59 Weight 63.503 kg 10/25/22 05:34 10/25/22 05:34 EKG Interpretations (text) Sinus rhythm Assessment and Plan Assessment: #1 symptoms of left-sided chest neck and back pain, acute coronary event has been ruled out, troponins negative 2, EKG with no evidence of ischemia #2 nicotine dependence #3 marijuana abuse Plan: From cardiology perspective and acute coronary event has been ruled out, pain is likely noncardiac and musculoskeletal in nature. We'll obtain a 2-D echo with Doppler study to assess cardiac structure and function. We will obtain a stress echocardiogram to evaluate for possible underlying ischemia. If testing is unremarkable patient may be discharged home and no further cardiac workup will be needed. GORE SEAMER note has been reviewed, I agree with a documented findings and plan of care. Patient was seen and examined.
--- NOTE | 2022-10-25 12:07 | CA ---
Stress Echo Report Vijay Odell Age: 42 Gender: M : 1980 Exam Date: 10/25/2022 10:21 Exam Location: [facility] Ht (in): 67 Wt (lb): 140 Ordering Physician: Gabriela Orantes Referring Physician: [id number] Manager Outpatient: DON, Technologist Procedure CPT: Indication: Chest Pain ICD-9 Codes: Rhythm: Patient History: smoker Cardiac Medications: ASA, Lipitor, Toradol, Norflex Medications in past 24 hours: Contrast: Stress Results Protocol: Cooper Total dose(mL): Exercise Duration (min:sec): 12.[address] Depression (mm): 0 Angina Score: 0 Wheeler Score: 0 METS: 12.3 Resting HR: 99 Resting BP: 121 / 64 Peak HR: 149 Peak BP: 152 / 82 Max Predicted HR: 176 85 % Max Predicted HR Target HR: 150 Double Product: 23549 Stress Summary: The patient's target heart rate was achieved BP Response: Normal Reason for Termination: Reached target heart rate or work-load Cardiac Symptoms: ECG Analysis Resting ECG: Normal sinus rhythm Stress ECG: No abnormal ST/T wave changes with exercise Arrhythmia: None Echo Analysis Resting Echo: Normal resting echocardiogram. Peak Echo Analysis: No wall motion changes with stress. MEASUREMENTS (Male/Female) Normal Values CONCLUSIONS No ECG evidence of ischemia with exercise. Normal treadmill stress echocardiogram. Dr. Woo Lainez MD (Electronically Signed) Final Date: 25 October 2022 12:06
--- NOTE | 2022-10-25 12:09 | CA ---
Transthoracic Echo Report Name: Vijay Odell Age: 42 Gender: M : 1980 Exam Date: 10/25/2022 11:10 Exam Location: [facility] Ht (in): 67 Wt (lb): 140 Ordering Physician: Gabriela Orantes Attending/Referring Phys: [id number], Lamberto Saw Man Jane Lantigua, ELAYNE Procedure CPT: Indications: Chest Pain Cardiac Hx: Technical Quality: Contrast 1: Total Dose (mL): Contrast 2: Total Dose (mL): MEASUREMENTS (Male / Female) Normal Values 2D ECHO LV Diastolic Diameter PLAX 3.9 cm 4.2 - 5.9 / 3.9 - 5.3 cm LV Systolic Diameter PLAX 2.6 cm IVS Diastolic Thickness 1.2 cm 0.6 - 1.0 / 0.6 - 0.9 cm LVPW Diastolic Thickness 0.9 cm 0.6 - 1.0 / 0.6 - 0.9 cm LV Relative Wall Thickness 0.5 RV Internal Dim ED PLAX 3.9 cm LA Volume 32.8 cm??? 18 - 58 / 22 - 52 cm??? M-MODE Aortic Root Diameter MM 2.7 cm LA Systolic Diameter MM 2.2 cm LA Ao Ratio MM 0.8 AV Cusp Separation MM 2.0 cm DOPPLER AV Peak Velocity 119.2 cm/s AV Peak Gradient 5.7 mmHg AV Mean Velocity 86.8 cm/s AV Mean Gradient 3.3 mmHg AV Velocity Time Integral 23.6 cm LVOT Peak Velocity 127.1 cm/s LVOT Peak Gradient 6.5 mmHg MV Area PHT 3.4 cm??? Mitral E Point Velocity 94.4 cm/s Mitral A Point Velocity 80.4 cm/s Mitral E to A Ratio 1.2 MV Deceleration Time 221.7 ms TR Peak Velocity 252.1 cm/s TR Peak Gradient 25.4 mmHg Right Ventricular Systolic Press 30.4 mmHg FINDINGS Left Ventricle Mildly increased septal wall thickness. Normal left ventricular systolic function with no obvious regional wall motion abnormalities. Left ventricular ejection fraction is estimated at 55-60 %. Right Ventricle Normal right ventricular wall thickness. Right ventricular systolic pressure within normal limits. Right Atrium Normal right atrial size. Left Atrium Normal left atrial size. Mitral Valve Structurally normal mitral valve. No mitral stenosis, or prolapse.trace mitral regurgitation. Aortic Valve Trileaflet aortic valve. No aortic valve stenosis or regurgitation. Tricuspid Valve Structurally normal tricuspid valve. Mild tricuspid regurgitation. Pulmonic Valve Structurally normal pulmonic valve. Pericardium No pericardial effusion. Aorta Normal size aortic root and proximal ascending aorta. CONCLUSIONS 1. Normal left ventricle size and systolic function 2. Mild tricuspid regurgitation with normal right-sided pressure 3. No pericardial effusion Previewed by: Dr. Woo Lainez MD (Electronically Signed) Final Date: 25 October 2022 12:08
[2022-10-25 15:45] VITALS: BP 108/71; PULSE 54; TEMP 97.7
--- NOTE | 2022-10-25 17:25 | P.DS ---
Providers Date of admission: 10/25/22 08:02 Expected date of discharge: 10/25/22 Attending physician: Katy Chong DO Consults: 10/25/22 07:49 Consult Physician Urgent Consulting Provider: Blas Roth Consult Reason/Comments: chest pain Do you want consulting provider notified?: Yes Primary care physician: Stated None Hospital Course: Discharge Diagnosis: Chest pain, acute coronary event ruled out Nicotine dependence, recommend smoking cessation. Cannabis use disorder, recommend cessation of daily cannabinoid use. Hospital Course: Patient is a very pleasant 42 -year-old male with a past medical nicotine dependence and cannabis use disorder. He presented with a chief complaint of left-sided chest pain. Patient reports this pain began yesterday evening while sitting on the toilet. He reports pain was to left anterior chest and initially started out as a sharp pain but then describes as a pressure radiating into his back, neck, and left shoulder. Patient states he has had problems with his back, shoulder, and neck in the past but states this pain was different. Sofi ent denies anything making pain better or worse and denies this pain being reproducible with movement. Patient reports he initially ignored but upon awakening this morning pain was still persistent so he came to the emergency department for evaluation. Patient reports family history of cardiac disease but denies any family history of sudden cardiac before the age of 50. He underwent full evaluation in the emergency department. An EKG was completed and personally reviewed showing normal sinus rhythm at 64 bpm with nonspecific T- wave abnormalities. Chest x-ray negative for acute process. Labs completed and reviewed showing unremarkable CBC and CMP. Troponin was negative at less than 0.012. D-dimer less than 0.17. Patient was admitted under our services with consultation to cardiology. Troponins trended all negative at less than 0.0123 draws. Echocardiogram completed revealing normal EF of 55-60% with mild tricuspid regurgitation. Patient was evaluated by cardiology and taken for stress echo. Stress echo showing no ECG evidence of ischemia with exercise revealing a normal treadmill stress echocardiogram. Cardiology recommending no further inpatient cardiac workup necessary at this time. Medically, patient is stable for discharge. Vital signs are unremarkable. Patient to follow up outpatient with PCP and cardiology as discussed. Physical exam: Vital signs reviewed and stable. General: Nontoxic, no distress and appears stated age. Derm: Skin warm and dry, normal coloration for ethnicity. Head: Atraumatic, normocephalic and symmetric. Eyes: EOMs intact, no lid lag, and anicteric sclera Mouth: no lip lesions, mucus membranes moist Cardiovascular: regular rate and rhythm with normal S1S2, no murmur, positive posterior tibial pulses bilaterally, and cap refill < 2 seconds. Lungs: Respirations even, regular, and unlabored on room air. Lungs CTA bilaterally, no rhonchi, no rales, no wheezing, and no accessory muscle usage. Abdominal: soft, nontender to palpation, no guarding, no appreciable organomegaly Ext: ROM intact. No gross muscle atrophy, no edema, no contractures Neuro: Speech clear, face symmetrical and CN II-XII grossly intact with no noted focal neuro deficits Psych: Alert and oriented to person, place, time, and situation. Appropriate and pleasant affect. A total of 32 minutes of time were spent preparing this complex discharge summary. Pt was discharged on 10/25/22 at 5:10 PM. Daljit Guan NP rendered care for this patient independently, reviewed the [facility] and plan as documented in the note above. I did not physically speak with or examine the patient on this date. Patient Condition at Discharge: Stable Plan - Discharge Summary Discharge Rx Participant: No New Discharge Prescriptions: New Aspirin 81 mg PO DAILY 30 Days #30 tab No Action No Known Home Medications Discharge Medication List Aspirin 81 mg PO DAILY 30 Days #30 tab 10/25/22 [Rx] No Known Home Medications 10/25/22 [History] Follow up Appointment(s)/Referral(s): Jamie Baker MD [REFERRING] - 1 Week Woo Lainez MD [STAFF PHYSICIAN] - 1 Week Patient Instructions/Handouts: Chest Pain (DC), How to Stop Smoking (DC) Activity/Diet/Wound Care/Special Instructions: Activity: As tolerated. Take breaks as needed. Diet: Heart healthy and carb consistent diet. Avoid salts, or foods with hidden salts such as canned or boxed foods and frozen dinners. Extra salt makes your heart work harder and traps the fluid in your body for longer. Special Instructions: Take all of your medications as directed and remember to keep all of your doctor's appointments and follow-up as needed. Recommend cessation of smoking and daily marijuana use. Thank you for allowing us to participate in your care, it was truly a pleasure having you for our patient!!! Discharge Disposition: HOME SELF-CARE
--- NOTE | 2022-10-25 17:29 | P.HPIM ---
History of Present Illness H&P Date: 10/25/22 History of Presenting Illness: Patient is a very pleasant 42 -year-old male with a past medical nicotine dependence and cannabis use disorder. He presented with a chief complaint of left-sided chest pain. Patient reports this pain began yesterday evening while sitting on the toilet. He reports pain was to left anterior chest and initially started out as a sharp pain but then describes as a pressure radiating into his back, neck, and left shoulder. Patient states he has had problems with his back, shoulder, and neck in the past but states this pain was different. Patie nt denies anything making pain better or worse and denies this pain being reproducible with movement. Patient reports he initially ignored but upon awakening this morning pain was still persistent so he came to the emergency department for evaluation. Patient reports family history of cardiac disease but denies any family history of sudden cardiac before the age of 50. He underwent full evaluation in the emergency department. An EKG was completed and personally reviewed showing normal sinus rhythm at 64 bpm with nonspecific T- wave abnormalities. Chest x-ray negative for acute process. Labs completed and reviewed showing unremarkable CBC and CMP. Troponin was negative at less than 0.012. D-dimer less than 0.17. Patient was admitted under our services with consultation to cardiology. At time of physical exam patient reports pain currently 1-2 out of 10 and has improved. Patient denies having any associated factors including headache, lightheadedness, dizziness, diaphoresis, palpitations, shortness of breath, exertional dyspnea, nausea, vomiting, or experiencing any numbness/tingling/weakness in his extremities. Review of systems: Pertinent positives and negatives as discussed in HPI, a complete review of systems was performed and all other systems are negative. Physical exam: Vital signs reviewed and stable. General: Nontoxic, no distress and appears stated age. Derm: Skin warm and dry, normal coloration for ethnicity. Head: Atraumatic, normocephalic and symmetric. Eyes: EOMs intact, no lid lag, and anicteric sclera Mouth: no lip lesions, mucus membranes moist Cardiovascular: regular rate and rhythm with normal S1S2, no murmur, positive posterior tibial pulses bilaterally, and cap refill < 2 seconds. Lungs: Respirations even, regular, and unlabored on room air. Lungs CTA bilaterally, no rhonchi, no rales, no wheezing, and no accessory muscle usage. Abdominal: soft, nontender to palpation, no guarding, no appreciable organomegaly Ext: ROM intact. No gross muscle atrophy, no edema, no contractures Neuro: Speech clear, face symmetrical and CN II-XII grossly intact with no noted focal neuro deficits Psych: Alert and oriented to person, place, time, and situation. Appropriate and pleasant affect. Assessment and Plan of Care: Chest pain, rule out acute coronary event -Cardiology consult, appreciate further recommendations -Telemetry monitoring -Trend troponins -Cardiac diet, NPO at midnight -Aspirin and atorvastatin -Lipid profile with a.m. labs. -Echocardiogram Nicotine dependence -Nicotine patch and recommend smoking cessation. Cannabis use disorder -Recommend cessation of daily cannabinoid use. The patient is admitted with an anticipated less than 2 midnight stay for evaluation of chest pain CODE STATUS: Full code DVT prophylaxis: Early ambulation and SCDs Discussed with: Patient and patient's mother at bedside Anticipated discharge date: Within the next [address]: Home A total of 42 minutes was spent on the care of this complex patient more than 50% of the time was spent in counseling and care coordination. Daljit Guan NP rendered care for this patient independently, reviewed the findings and plan as documented in the note above. I did not physically speak with or examine the patient on this date. Past Medical History Past Medical History: No Reported History Additional Past Medical History / Comment(s): mrsa History of Any Multi-Drug Resistant Organisms: MRSA Date of last positivie culture/infection: 05/07/22 MDRO Source:: Right Elbow Past Surgical History: No Surgical Hx Reported Additional Past Surgical History / Comment(s): right knee r/t MRSA Past Anesthesia/Blood Transfusion Reactions: No Reported Reaction Past Psychological History: No Psychological Hx Reported Smoking Status: Current every day smoker Past Alcohol Use History: Occasional Past Drug Use History: Marijuana Medications and Allergies Home Medications Medication Instructions Recorded Confirmed Type Aspirin 81 mg PO DAILY 30 Days #30 tab 10/25/22 Rx No Known Home Medications 10/25/22 10/25/22 History Allergies Allergy/AdvReac Type Severity Reaction Status Date / Time No Known Allergies Allergy Verified 10/25/22 08:22 Physical Exam Osteopathic Statement: *. No significant issues noted on an osteopathic structural exam other than those noted in the History and Physical/Consult. Vitals: Vital Signs Temp Pulse Resp BP Pulse Ox 10/25/22 06:08 68 16 110/71 98 10/25/22 05:10 97.9 F 77 16 130/87 100 Intake and Output 10/24/22 10/25/22 10/25/22 22:59 06:59 14:59 Other: Weight 63.503 kg Results CBC & Chem 7: 10/25/22 05:34 10/25/22 05:34
[2022-10-26] MEDS ORDERED: ASPIRIN 325 MG TAB PO SCH (09:00)
== END 2022-10-25 17:47 | disposition home or self-care (01) ==
LOC: EC 05:07 → 6NMEDSUR 08:02
PROVIDERS: ADMIT Internal Medicine; ATTEND Internal Medicine
DX: R07.89 Other chest pain (principal); M54.50 Low back pain, unspecified; F12.10 Cannabis abuse, uncomplicated; F17.210 Nicotine dependence, cigarettes, uncomplicated; Z79.82 Long term (current) use of aspirin; Z82.49 Family history of ischemic heart disease and other diseases of the circulatory system
CPT/HCPCS: 96374; 96375; 99285; 36415; 93005; 93306; 93351; 85379; 80053; 83735; 84484; 85025; 71046; G0378; J2360; J1885

== ENCOUNTER 2023-11-03 09:12 | Inpatient (IN) | payer OTHER ==
[2023-11-03] MEDS ORDERED: SODIUM CHLORIDE 0.9% 1,000 ML IV ONE ×3 (09:28→13:22)
[2023-11-03] MEDS ORDERED: NALOXONE 0.4 MG/ML 1 ML VIAL IM STA (09:28)
[2023-11-03] MEDS ORDERED: DIPH,PERTUS(ACELL)TETVAC-LF 0.5 ML VIAL IM ONE (09:30)
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
--- NOTE | 2023-11-03 10:14 | CT ---
EXAMINATION TYPE: CT brain wo con DATE OF EXAM: 11/03/2023 COMPARISON: None HISTORY: 43-year-old male, ams TECHNIQUE: Examination was done in axial plane without intravenous contrast. Coronal and sagittal r econstructions performed. CT DLP: 1153.7 mGycm Automated exposure control for dose reduction was used. FINDINGS: There is no evidence of acute intracranial hemorrhage, acute ischemic changes, mass, mass-effect, or extra-axial fluid collection. There is no effacement of cerebral sulci or basal subarachnoid cister ns. There is no hydrocephalus. There is no midline shift. Finn-white matter distinction is preserv ed. Slight leftward nasal septal deviation. Mild mucosal thickening posterior right ethmoid air cells. Di vergent gaze may be due to underlying strabismus. Mastoid air cells are well pneumatized. IMPRESSION: No acute intracranial abnormality seen.
[2023-11-03] MEDS ORDERED: NALOXONE 0.4 MG/ML 1 ML VIAL IVP STA (10:19)
--- NOTE | 2023-11-03 10:19 | XR ---
EXAMINATION TYPE: XR chest 2V, XR hand complete 3 views RT, XR forearm 2 views RT DATE OF EXAM: 11/03/2023 COMPARISON: Chest 10/25/2022 HISTORY: 43-year-old male confusion, altered mental status, pain and multiple lacerations, unknown tr auma. FINDINGS: Chest: The cardiomediastinal silhouette, aorta, and pulmonary vasculature are within normal limits. Lungs an d pleural spaces are clear. Right forearm: There is a laceration along the dorsum of the distal third forearm. No retained radiopaque foreign claudia dy or underlying acute fracture is seen. Elbow and wrist articulations are grossly intact. Right hand: Multiple rings are present limiting assessment of the proximal phalanges of the thumb as well as the middle and ring fingers. Otherwise, no acute fracture, subluxation, or dislocation is seen. IMPRESSION: 1. Chest: No acute cardiopulmonary process. 2. Right forearm: Laceration along the dorsum of the distal forearm. No retained radiopaque foreign b lucas or acute osseous body seen. 3. Right hand: Large rings cause limitation in assessment. No acute osseous abnormality seen.
[2023-11-03 10:24] LABS: HCT 50.6 % (39.0-53.0); HGB 16.4 gm/dL (13.0-17.5); MCH 30.9 pg (25.0-35.0); MCHC 32.3 g/dL (31.0-37.0); MCV 95.4 fL (80.0-100.0); Mean Platelet Volume 7.7; Platelet Count 357 k/uL (150-450); RDW 12.6 % (11.5-15.5)
[2023-11-03 10:28] LABS: VBG PH 7.04 (7.31-7.41)
[2023-11-03 10:42] LABS: ALT 88 U/L (4-49); AST 207 U/L (17-59); African American GFR (CKD) 30 (>60 ml/min/1.73 sqM); Albumin 5.1 g/dL (3.5-5.0); Alcohol <10 mg/dL; Alkaline Phosphatase 53 U/L (38-126); Anion Gap 26 mmol/L; Blood Urea Nitrogen 25 mg/dL (9-20); Carbon Dioxide 16 mmol/L (22-30); Chloride 100 mmol/L (98-107); Glucose 115 mg/dL (74-99); Non-African American GFR(CKD) 26 (>60 ml/min/1.73 sqM); Sodium 142 mmol/L (137-145); Total Bilirubin 0.6 mg/dL (0.2-1.3); Total Protein 7.9 g/dL (6.3-8.2)
[2023-11-03 10:45] LABS: INR 0.9 (<1.2); Prothrombin Time 9.7 sec (10.0-12.5)
[2023-11-03 10:57] LABS: Potassium 4.8 mmol/L (3.5-5.1)
[2023-11-03 11:01] LABS: Partial Thromboplastin Time 19.5 sec (22.0-30.0)
[2023-11-03 11:04] LABS: Band Neutrophils % 5 %; Lymphocytes # (M) 0.48 k/uL (1.0-4.8); Monocytes # (M) 0.96 k/uL (0-1.0); Neutrophils % (M) 89 %; Nucleated Red Blood Cells 0 /100 WBC (0-0); Total Cells Counted 100
[2023-11-03 11:05] LABS: RBC Morphology Normal
[2023-11-03 11:07] LABS: Glucose,Whole Blood 59 mg/dL (70-110)
[2023-11-03] MEDS ORDERED: LIDOCAINE 1% INJ 10MG/ML (20 ML MDV) SQ ONE (11:15)
[2023-11-03 11:31] LABS: Troponin I 0.429 ng/mL (0.000-0.034)
[2023-11-03 12:33] LABS: Glucose,Whole Blood 63 mg/dL (70-110)
[2023-11-03] MEDS ORDERED: SODIUM BICARB 8.4% 50 ML SYR (1 MEQ/ML) IV STA (13:05)
[2023-11-03 13:27] LABS: VBG PH 7.22 (7.31-7.41)
[2023-11-03 13:50] LABS: Amphetamine Screen,Urine Detected (NotDetected); Barbiturate Screen,Urine Not Detected (NotDetected); Benzodiazepines Screen,Urine Not Detected (NotDetected); Cocaine Screen,Urine Detected (NotDetected); Methadone Screen, Urine Not Detected (NotDetected); Opiate Screen,Urine Detected (NotDetected); Oxycodone Screen, Urine Not Detected (NotDetected); Phencyclidine Screen,Urine Not Detected (NotDetected); Tricyclic Antidepressant,Urine Not Detected (NotDetected); Urn Cannabinoid Scrn Detected (NotDetected)
[2023-11-03 13:50] LABS: Acetaminophen <10.0 ug/mL; Salicylate <1.0 mg/dL
[2023-11-03 13:51] LABS: Glucose,Whole Blood 92 mg/dL (70-110)
[2023-11-03] MEDS: NACL IV SCH ×2 (13:57)
[2023-11-03] MEDS: SODIUM BICARB IV SCH ×2 (13:57)
[2023-11-03] MEDS: DEXTROSE IV SCH ×2 (13:57)
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
[2023-11-03 14:24] LABS: Appearance,Urine Cloudy (Clear); Bilirubin,Urine Negative (Negative); Blood,Urine Large (Negative); Calcium Oxalate Crystals,Urine Rare /hpf; Color,Urine Yellow; Glucose,Urine (UA) 3+ (Negative); Hyaline Casts,Urine 11 /lpf (0-2); Ketones,Urine Negative (Negative); Leukocyte Esterase,Urine Negative (Negative); Mucus,Urine Moderate /hpf; Nitrite,Urine Negative (Negative); Protein,Urine 2+ (Negative); RBC,Urine 2 /hpf (0-5); Specific Gravity,Urine 1.016 (1.001-1.035); Squamous Epithelial Cell,Urine 3 /hpf (0-4); Urobilinogen,Urine <2.0 mg/dL (<2.0); WBC,Urine 12 /hpf (0-5)
[2023-11-03 15:06] LABS: ABG Base Excess -3.8 mmol/L; ABG HCO3 23 mmol/L (21-25); ABG PCO2 50 mmHg (35-45); ABG PH 7.28 (7.35-7.45); ABG PO2 76 mmHg (83-108); ABG TCO2 25 mmol/L (19-24); Allen Test Performed? Yes
[2023-11-03] MEDS: PANTOPRAZOLE 40 MG/10 ML VIAL IVP SCH ×2 (15:08→20:23)
[2023-11-03 15:28] LABS: Creatine Kinase 22436 U/L (55-170)
[2023-11-03 17:11] LABS: VBG PH 7.3 (7.31-7.41)
[2023-11-03 20:30] LABS: Glucose,Whole Blood 146 mg/dL (70-110)
[2023-11-03 21:38] LABS: VBG PH 7.31 (7.31-7.41)
[2023-11-04] MEDS: DEXTROSE IV SCH ×2 (01:27)
[2023-11-04] MEDS: NACL IV SCH ×2 (01:27)
[2023-11-04] MEDS: SODIUM BICARB IV SCH ×2 (01:27)
[2023-11-04 02:17] LABS: Glucose,Whole Blood 137 mg/dL (70-110)
[2023-11-04 06:15] LABS: Glucose,Whole Blood 133 mg/dL (70-110)
[2023-11-04 08:11] LABS: HCT 35.8 % (39.0-53.0); MCH 30.9 pg (25.0-35.0); MCHC 33.6 g/dL (31.0-37.0); MCV 91.9 fL (80.0-100.0); Mean Platelet Volume 8.3; Platelet Count 234 k/uL (150-450); RDW 12.9 % (11.5-15.5); WBC 10.5 k/uL (3.8-10.6)
[2023-11-04 08:26] LABS: ALT 208 U/L (4-49); AST 702 U/L (17-59); African American GFR (CKD) 83 (>60 ml/min/1.73 sqM); Alkaline Phosphatase 47 U/L (38-126); Anion Gap 8 mmol/L; Blood Urea Nitrogen 31 mg/dL (9-20); Calcium 7.7 mg/dL (8.4-10.2); Carbon Dioxide 26 mmol/L (22-30); Chloride 103 mmol/L (98-107); Glucose 123 mg/dL (74-99); Non-African American GFR(CKD) 72 (>60 ml/min/1.73 sqM); Potassium 4.3 mmol/L (3.5-5.1); Sodium 137 mmol/L (137-145); Total Bilirubin 0.2 mg/dL (0.2-1.3); Total Protein 5.1 g/dL (6.3-8.2)
[2023-11-04] MEDS ORDERED: PANTOPRAZOLE 40 MG/10 ML VIAL IVP SCH (09:00)
[2023-11-04] MEDS ORDERED: ENOXAPARIN 40 MG/0.4 ML SYRINGE SQ SCH (09:00)
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
[2023-11-04] MEDS: PANTOPRAZOLE 40 MG/10 ML VIAL IVP SCH ×2 (11:09→22:29)
[2023-11-04] MEDS: SODIUM CHLORIDE 0.9% 1,000 ML IV SCH ×3 (11:09→22:29)
--- NOTE | 2023-11-04 14:36 | P.PN ---
Subjective Progress Note Date: 11/04/23 43 year old M with no known PMH presents to the ED for altered mentation. Patient is a poor historian and majority of H&P obtained from the mother, ED provider and documentation. Apparently found hunched over yesterday afternoon standing over the front seat by family, noted laceration over his right forearm. Unable to walk him inside, they helped him get back in the truck, laying over the center console and put a blanket over the patient and he spent the night in his truck. Found this morning to be unresponsive thus EMS was called. Patient is lethargic but easily arousable. He complains of feeling sore all over. He has some coffee ground emesis. He denies any drug use. Reports occasional alcohol use. Does not remember the events leading up to his hospitalization. In the ED, he underwent extensive evaluation. Tlow 93.6F. HR 90s. 91% on RA. CBC WBC 24. PT 9.7, APTT 19.5. VBG pH 0.04, pCO2 71. CMP bicarb 16, BUN 25, Cr 2.8, glu 115, AST 207, ALT 88, alb 5.1. Lactic acid 10.2. Troponins 0.429. EKG sinus rhythm with no ST elevation. CT brain negative. CXR right forearm laceration, no acute process. Given 2 amps of bicarb and started on D5NS with bicarb infusion. Anion gap closed. Acidosis resolved. Lactic acidosis resolved. Placed on madan hugger for a short period of time for hypothermia, now normalized. 11/04 Patient was seen and examined. Mentation considerably improved since a dmission. He does complain of generalized pain everywhere. No nausea or vomiting. ABG pH 7.28, pCO2 50. CBC Hg 12, Hct 35.8. CMP BUN 31, glu 123, Ca 7.7, AST 702, ALT 208, alb 3. Lactic acid 2.0. Troponin 0.352, 0.291. UA large blood. UDS + opiate, amphetamines, cocaine, marijuana. Salicylate, Acetaminophen negative. EEG negative for epileptiform activity, generalized cerebral dysfunction. Ammonia 10. CPK [id number]. General: mild distress, appears at stated age Derm: warm, dry, laceration over right forearm and hand. Head: atraumatic, normocephalic, symmetric, facial flushing Eyes: EOMI, no lid lag, anicteric sclera Mouth: no lip lesion, mucus membranes moist Cardiovascular: S1S2 reg, no murmur Lungs: Decreased BS bilateral, no rhonchi, no rales , no accessory muscle use Abdominal: soft, nontender to palpation, no guarding, no appreciable organomegaly Ext: no gross muscle atrophy, no edema, no contractures Neuro: no focal neuro deficits Psych: Alert, oriented, appropriate affect Based on my assessment of this patient, this patient meets a moderate complexity level of care. Patient has an acute diagnosis of acute metabolic encephalopathy that poses a threat to life or bodily function. Found to be hypothermic with severe metabolic acidosis meeting sepsis criteria. Acute metabolic encephalopathy: Likely due to polysubstance abuse and hypothermia. Resolving. SIRS: Patient meets severe sepsis criteria with hypothermia, tachycardia, leukocytosis and lactic acidosis. CXR with no infiltrate. BCx. UA negative. Telemetry monitoring. IV hydration as below. Hold antibiotics for now. Rhabodmyolysis: CPK as above. Switch IVF to NS at 100 cc/hr. Monitor renal function. Trend CPK. Troponin elevation: Possible rhabdomyolysis. EKG no ST depression or elevation. Troponin flat, ACS ruled out. Echo ordered. Coffee gound emesis: Small amount at bedside. Protonix 40 mg IV BID. Monitor Hg. Acute kidney injury: IV hydration as above. Transaminitis: Due to rhabdomyolysis. Monitor. Polysubstance abuse: Advised to quit. Resolved: AG metabolic acidosis. Lactic acidosis. Hypoglycemia. Hypothermia CODE STATUS: FULL CODE DVT Prophylaxis: Lovenox SQ GI Prophylaxis: Protonix IV Designated medical POA if patient is not able to make medical decisions for themselves: Mother. I have reviewed the following internal control consultant notes: I have reviewed the results of the following tests: CBC, CMP, ABG, Lactic acid, Troponin, UA, UDS, Salicylate, Acetaminophen, EEG, Ammonia, CPK. I have ordered the following tests: As above I have discussed the care of this patient with the following independent il storian: I have independently interpreted the following test below: I have discussed the management of this patient with the following physician: Objective - Vital Signs Vital signs: Vital Signs Temp 98.2 F 11/04/23 08:00 Pulse 80 11/04/23 08:00 Resp 11 L 11/04/23 08:00 BP 110/80 01/08/24 08:00 Pulse Ox 96 11/04/23 08:00 FiO2 Intake & Output 11/03/23 11/04/23 11/04/23 18:59 06:59 18:59 Intake Total 1200 900 900 Output Total 800 1200 Balance 400 900 -300 Weight 75.75 kg Intake: IV 400 Sodium Chloride 0.9% 1, 400 000 ml @ 100 mls/hr IV . Q10H MARLA Rx#:[id number] Intake, IV Titration 1200 Amount Dextrose 5%-0.9% NaCl 1, 1200 000 ml @ 100 mls/hr IV . [id number] MARLA with Sodium Bicarb (1 Meq/ml) 50 ml Rx#:[id number] Oral 900 500 Output: Urine 800 1200 Other: # Voids 2 - Labs CBC & Chem 7: 11/04/23 07:57 11/04/23 07:57 Labs: Abnormal Lab Results - Last 24 Hours (Table) 11/03/23 11/03/23 11/03/23 Range/Units 12:51 13:18 15:00 RBC (4.30-5.90) m/uL Hgb (13.0-17.5) gm/dL Hct (39.0-53.0) % ABG pH 7.28 L (7.35-7.45) ABG pCO2 50 H (35-45) mmHg ABG pO2 76 L (83-108) mmHg ABG Total CO2 25 H (19-24) mmol/L VBG pH (7.31-7.41) VBG HCO3 (24-28) mmol/L BUN (9-20) mg/dL Glucose (74-99) mg/dL POC Glucose (mg/dL) (70-110) mg/dL Plasma Lactic Acid Sam (0.7-2.0) mmol/L Calcium (8.4-10.2) mg/dL AST (17-59) U/L ALT (4-49) U/L Creatine Kinase 38319 H* (55-170) U/L Troponin I (0.000-0.034) ng/mL Total Protein (6.3-8.2) g/dL Albumin (3.5-5.0) g/dL Urine Protein 2+ H (Negative) Urine Glucose (UA) 3+ H (Negative) Urine Blood Large H (Negative) Urine WBC 12 H (0-5) /hpf Calcium Oxalate Crystal Rare H (None) /hpf Hyaline Casts 11 H (0-2) /lpf Urine Mucus Moderate H (None) /hpf 11/03/23 11/03/23 11/03/23 Range/Units 16:51 16:51 16:51 RBC (4.30-5.90) m/uL Hgb (13.0-17.5) gm/dL Hct (39.0-53.0) % ABG pH (7.35-7.45) ABG pCO2 (35-45) mmHg ABG pO2 (83-108) mmHg ABG Total CO2 (19-24) mmol/L VBG pH 7.30 L (7.31-7.41) VBG HCO3 22 L (24-28) mmol/L BUN (9-20) mg/dL Glucose (74-99) mg/dL POC Glucose (mg/dL) (70-110) mg/dL Plasma Lactic Acid Sam 2.6 H* (0.7-2.0) mmol/L Calcium (8.4-10.2) mg/dL AST (17-59) U/L ALT (4-49) U/L Creatine Kinase (55-170) U/L Troponin I 0.291 H* (0.000-0.034) ng/mL Total Protein (6.3-8.2) g/dL Albumin (3.5-5.0) g/dL Urine Protein (Negative) Urine Glucose (UA) (Negative) Urine Blood (Negative) Urine WBC (0-5) /hpf Calcium Oxalate Crystal (None) /hpf Hyaline Casts (0-2) /lpf Urine Mucus (None) /hpf 11/03/23 11/03/23 11/03/23 Range/Units 20:28 20:58 20:58 RBC (4.30-5.90) m/uL Hgb (13.0-17.5) gm/dL Hct (39.0-53.0) % ABG pH (7.35-7.45) ABG pCO2 (35-45) mmHg ABG pO2 (83-108) mmHg ABG Total CO2 (19-24) mmol/L VBG pH (7.31-7.41) VBG HCO3 23 L (24-28) mmol/L BUN (9-20) mg/dL Glucose (74-99) mg/dL POC Glucose (mg/dL) 146 H (70-110) mg/dL Plasma Lactic Acid Sam 2.5 H* (0.7-2.0) mmol/L Calcium (8.4-10.2) mg/dL AST (17-59) U/L ALT (4-49) U/L Creatine Kinase (55-170) U/L Troponin I (0.000-0.034) ng/mL Total Protein (6.3-8.2) g/dL Albumin (3.5-5.0) g/dL Urine Protein (Negative) Urine Glucose (UA) (Negative) Urine Blood (Negative) Urine WBC (0-5) /hpf Calcium Oxalate Crystal (None) /hpf Hyaline Casts (0-2) /lpf Urine Mucus (None) /hpf 11/04/23 11/04/23 11/04/23 Range/Units 00:21 02:14 06:13 RBC (4.30-5.90) m/uL Hgb (13.0-17.5) gm/dL Hct (39.0-53.0) % ABG pH (7.35-7.45) ABG pCO2 (35-45) mmHg ABG pO2 (83-108) mmHg ABG Total CO2 (19-24) mmol/L VBG pH (7.31-7.41) VBG HCO3 (24-28) mmol/L BUN (9-20) mg/dL Glucose (74-99) mg/dL POC Glucose (mg/dL) 137 H 133 H (70-110) mg/dL Plasma Lactic Acid Sam 2.3 H* (0.7-2.0) mmol/L Calcium (8.4-10.2) mg/dL AST (17-59) U/L ALT (4-49) U/L Creatine Kinase (55-170) U/L Troponin I (0.000-0.034) ng/mL Total Protein (6.3-8.2) g/dL Albumin (3.5-5.0) g/dL Urine Protein (Negative) Urine Glucose (UA) (Negative) Urine Blood (Negative) Urine WBC (0-5) /hpf Calcium Oxalate Crystal (None) /hpf Hyaline Casts (0-2) /lpf Urine Mucus (None) /hpf 11/04/23 11/04/23 Range/Units 07:57 07:57 RBC 3.90 L (4.30-5.90) m/uL Hgb 12.0 L D (13.0-17.5) gm/dL Hct 35.8 L (39.0-53.0) % ABG pH (7.35-7.45) ABG pCO2 (35-45) mmHg ABG pO2 (83-108) mmHg ABG Total CO2 (19-24) mmol/L VBG pH (7.31-7.41) VBG HCO3 (24-28) mmol/L BUN 31 H (9-20) mg/dL Glucose 123 H (74-99) mg/dL POC Glucose (mg/dL) (70-110) mg/dL Plasma Lactic Acid Sam (0.7-2.0) mmol/L Calcium 7.7 L (8.4-10.2) mg/dL AST 702 H (17-59) U/L ALT 208 H (4-49) U/L Creatine Kinase (55-170) U/L Troponin I (0.000-0.034) ng/mL Total Protein 5.1 L (6.3-8.2) g/dL Albumin 3.0 L (3.5-5.0) g/dL Urine Protein (Negative) Urine Glucose (UA) (Negative) Urine Blood (Negative) Urine WBC (0-5) /hpf Calcium Oxalate Crystal (None) /hpf Hyaline Casts (0-2) /lpf Urine Mucus (None) /hpf
--- NOTE | 2023-11-04 17:00 | CA ---
Transthoracic Echo Report Name: Vijay Odell Age: 43 Gender: M : 1980 Exam Date: 11/04/2023 16:30 Exam Location: [facility] Ht (in): 68 Wt (lb): 167 Ordering Physician: Umm Nunez MD Attending/Referring Phys: Cyber Incident Responder Donovan Gonzalez Procedure CPT: Indications: trop elevated Cardiac Hx: Technical Quality: Good Contrast 1: Total Dose (mL): Contrast 2: Total Dose (mL): MEASUREMENTS (Male / Female) Normal Values 2D ECHO LV Diastolic Diameter PLAX 4.4 cm 4.2 - 5.9 / 3.9 - 5.3 cm LV Systolic Diameter PLAX 3.3 cm IVS Diastolic Thickness 1.1 cm 0.6 - 1.0 / 0.6 - 0.9 cm LVPW Diastolic Thickness 1.0 cm 0.6 - 1.0 / 0.6 - 0.9 cm LV Relative Wall Thickness 0.5 RV Internal Dim ED PLAX 3.1 cm LVOT Diameter 2.1 cm Aortic Root Diameter 2.1 cm LA Systolic Diameter LX 3.0 cm 3.0 - 4.0 / 2.7 - 3.8 cm LV Diastolic Volume MOD BP 65.3 cm??? 67 - 155 / 56 - 104 cm??? LV Systolic Volume MOD BP 33.8 cm??? - / 19 - 49 cm??? LV Ejection Fraction MOD BP 48.3 % >= 55 % LV Cardiac Index MOD BP 1235.0 cm???/min???m??? LV Diastolic Volume MOD 4C 61.1 cm??? LV Systolic Volume MOD 4C 29.3 cm??? LV Ejection Fraction MOD 4C 52.0 % LV Cardiac Index MOD 4C 1243.1 cm???/min???m??? LV Diastolic Length 4C 7.1 cm LV Systolic Length 4C 6.1 cm LV Diastolic Volume MOD 2C 72.6 cm??? LV Systolic Volume MOD 2C 33.8 cm??? LV Ejection Fraction MOD 2C 53.5 % LV Cardiac Index MOD 2C 1519.8 cm???/min???m??? LV Diastolic Length 2C 7.4 cm LV Systolic Length 2C 6.2 cm LA Volume 46.0 cm??? 18 - 58 / 22 - 52 cm??? LA Volume Index 24.0 cm???/m??? 16 - 28 cm???/m??? Ascending Aorta Diameter 2.9 cm DOPPLER AV Peak Velocity 110.2 cm/s AV Peak Gradient 4.9 mmHg AV Mean Velocity 79.1 cm/s AV Mean Gradient 2.9 mmHg AV Velocity Time Integral 20.5 cm LVOT Peak Velocity 95.0 cm/s LVOT Peak Gradient 3.6 mmHg LVOT Velocity Time Integral 19.1 cm LVOT Stroke Volume 66.7 cm??? LVOT Stroke Volume Index 35.2 ml/m??? LVOT Cardiac Index 2610.5 cm???/min???m??? AV Area Cont Eq vti 3.2 cm??? AV Area Cont Eq pk 3.0 cm??? MV Peak Velocity 96.6 cm/s MV Peak Gradient 3.7 mmHg MV Mean Velocity 57.5 cm/s MV Mean Gradient 1.6 mmHg MV Velocity Time Integral 27.6 cm Mitral E Point Velocity 82.2 cm/s Mitral A Point Velocity 90.2 cm/s Mitral E to A Ratio 0.9 MV Deceleration Time 162.6 ms MV E' Velocity 7.3 cm/s Mitral E to MV E' Ratio 11.2 TR Peak Velocity 185.3 cm/s TR Peak Gradient 13.7 mmHg Right Ventricular Systolic Press 18.7 mmHg PV Peak Velocity 86.1 cm/s PV Peak Gradient 3.0 mmHg FINDINGS Left Ventricle Normal LV size and wall thickness. Left ventricular ejection fraction is estimated at 55-60 %. Right Ventricle Normal right ventricular size. Right Atrium Normal right atrial size. Left Atrium Normal left atrial size. Mitral Valve Structurally normal mitral valve. Trace MR. Aortic Valve Trileaflet aortic valve. No aortic stenosis. No aortic regurgitation. Tricuspid Valve Structurally normal tricuspid valve. Mild TR. Pulmonic Valve Structurally normal pulmonic valve. No pulmonic regurgitation. Pericardium Normal pericardium. Aorta Normal size aortic root and proximal ascending aorta. CONCLUSIONS Normal LV systolic function Previewed by: Dr. Roberto Rendon MD (Electronically Signed) Final Date: 04 November 2023 16:59
[2023-11-05 00:36] LABS: Glucose,Whole Blood 108 mg/dL (70-110)
[2023-11-05] MEDS: SODIUM CHLORIDE 0.9% 1,000 ML IV SCH ×4 (02:52→22:57)
[2023-11-05 08:02] LABS: Glucose,Whole Blood 116 mg/dL (70-110)
[2023-11-05] MEDS: PANTOPRAZOLE 40 MG/10 ML VIAL IVP SCH ×2 (08:19→20:03)
[2023-11-05 09:58] LABS: ALT 215 U/L (4-49); AST 589 U/L (17-59); African American GFR (CKD) >90 (>60 ml/min/1.73 sqM); Albumin 2.7 g/dL (3.5-5.0); Alkaline Phosphatase 49 U/L (38-126); Anion Gap 6 mmol/L; Blood Urea Nitrogen 15 mg/dL (9-20); Carbon Dioxide 26 mmol/L (22-30); Chloride 106 mmol/L (98-107); Glucose 95 mg/dL (74-99); Non-African American GFR(CKD) >90 (>60 ml/min/1.73 sqM); Potassium 4.3 mmol/L (3.5-5.1); Sodium 138 mmol/L (137-145); Total Bilirubin 0.3 mg/dL (0.2-1.3); Total Protein 4.8 g/dL (6.3-8.2)
[2023-11-05 10:42] LABS: Creatine Kinase 23940 U/L (55-170)
--- NOTE | 2023-11-05 10:57 | P.PN ---
Subjective Progress Note Date: 11/05/23 43 year old M with no known PMH presents to the ED for altered mentation. Patient is a poor historian and majority of H&P obtained from the mother, ED provider and documentation. Apparently found hunched over yesterday afternoon standing over the front seat by family, noted laceration over his right forearm. Unable to walk him inside, they helped him get back in the truck, laying over the center console and put a blanket over the patient and he spent the night in his truck. Found this morning to be unresponsive thus EMS was called. Patient is lethargic but easily arousable. He complains of feeling sore all over. He has some coffee ground emesis. He denies any drug use. Reports occasional alcohol use. Does not remember the events leading up to his hospitalization. In the ED, he underwent extensive evaluation. Tlow 93.6F. HR 90s. 91% on RA. CBC WBC 24. PT 9.7, APTT 19.5. VBG pH 0.04, pCO2 71. CMP bicarb 16, BUN 25, Cr 2.8, glu 115, AST 207, ALT 88, alb 5.1. Lactic acid 10.2. Troponins 0.429. EKG sinus rhythm with no ST elevation. CT brain negative. CXR right forearm laceration, no acute process. Placed on madan hugger for a short period of time in the ED for hypothermia, now normalized. Given 2 amps of bicarb and started on D5NS with bicarb infusion. Anion gap closed. Acidosis resolved. Lactic acidosis resolved. UDS + opiate, amphetamines, cocaine, marijuana. Troponin elevated, ACS ruled out, Echo within normal limits, thought to be related to rhabdomyolysis. Noted to have rhabdomyolysis and transaminitis, trending up, on IVF. 11/04 Patient was seen and examined. Mentation considerably improved since admission. He does complain of generalized pain everywhere. No nausea or vomiting. ABG pH 7.28, pCO2 50. CBC Hg 12, Hct 35.8. CMP BUN 31, glu 123, Ca 7.7, AST 702, ALT 208, alb 3. Lactic acid 2.0. Troponin 0.352, 0.291. UA large blood. UDS + opiate, amphetamines, cocaine, marijuana. Salicylate, Acetaminophen negative. EEG negative for epileptiform activity, generalized cerebral dysfunction. Ammonia 10. CPK 16583. 11/05 Patient was seen and examined. Feels sore all over. Echocardiogram within normal limits. CMP Ca 8, AST 589, ALT 215, alb 2.7. CPK 52163. General: mild distress, appears at stated age Derm: warm, dry, laceration over right forearm and hand. Head: atraumatic, normocephalic, symmetric Eyes: EOMI, no lid lag, anicteric sclera Mouth: no lip lesion, mucus membranes moist Cardiovascular: S1S2 reg, no murmur Lungs: Decreased BS bilateral, no rhonchi, no rales , no accessory muscle use Abdominal: soft, nontender to palpation, no guarding, no appreciable organomegaly Ext: no gross muscle atrophy, no edema, no contractures Neuro: no focal neuro deficits Psych: Alert, oriented, appropriate affect Based on my assessment of this patient, this patient meets a moderate complexity level of care. Patient has an acute diagnosis of acute metabolic encephalopathy that poses a threat to life or bodily function. Found to be hypothermic with severe metabolic acidosis meeting sepsis criteria. Acute metabolic encephalopathy: Likely due to polysubstance abuse and hypothermia. Resolving. SIRS: Patient meets severe sepsis criteria with hypothermia, tachycardia, leukocytosis and lactic acidosis. CXR with no infiltrate. BCx prelim negative. UA negative. Telemetry monitoring. IV hydration as below. Hold antibiotics for now. Rhabodmyolysis: CPK as above. Switch IVF to NS at 200 cc/hr. Monitor renal function. Trend CPK. Troponin elevation: Possible rhabdomyolysis. EKG no ST depression or elevation. Troponin flat, ACS ruled out. Echo with no regional wall motion abnormalities. Coffee gound emesis: Small amount at bedside. Protonix 40 mg IV BID. Monitor Hg. Transaminitis: Due to rhabdomyolysis. Monitor. Polysubstance abuse: Advised to quit. Resolved: AG metabolic acidosis. Lactic acidosis. Hypoglycemia. Hypothermia. JAYSON Patient can probably be discharged tomorrow if LFTs and CPK continue to trend down. CODE STATUS: FULL CODE DVT Prophylaxis: Lovenox SQ GI Prophylaxis: Protonix IV Designated medical POA if patient is not able to make medical decisions for themselves: Mother. I have reviewed the following tax consultant notes: I have reviewed the results of the following tests: CMP. CPK. I have ordered the following tests: CMP, CPK. I have discussed the care of this patient with the following independent historian: I have independently interpreted the following test below: I have discussed the management of this patient with the following physician: Objective - Vital Signs Vital signs: Vital Signs Temp 98.1 F 11/05/23 08:22 Pulse 71 11/05/23 08:22 Resp 16 11/05/23 08:22 BP 115/81 11/05/23 08:22 Pulse Ox 100 11/05/23 08:22 FiO2 Intake & Output 11/04/23 11/05/23 11/05/23 18:59 06:59 18:59 Intake Total 1900 Output Total 1900 900 Balance 0 -900 Weight 75.75 kg Intake: IV 1400 Sodium Chloride 0.9% 1, 1400 000 ml @ 200 mls/hr IV . Q5H [facility] Rx#:[id number] Oral 500 Output: Urine 1900 900 Other: Voiding Method Toilet - Labs CBC & Chem 7: 11/04/23 07:57 11/05/23 08:43 Labs: Abnormal Lab Results - Last 24 Hours (Table) 11/04/23 11/05/23 Range/Units 07:57 08:00 POC Glucose (mg/dL) 116 H (70-110) mg/dL Creatine Kinase 14768 H* (55-170) U/L Microbiology - Last 24 Hours (Table) 11/03/23 17:00 Blood Culture - Preliminary Blood 11/03/23 12:51 Urine Culture - Final Urine,Voided
[2023-11-05 11:13] LABS: Glucose,Whole Blood 97 mg/dL (70-110)
[2023-11-05 14:20] LABS: Ethanol Negative (Negative); Isopropanol Negative (Negative)
[2023-11-05 16:12] LABS: Glucose,Whole Blood 78 mg/dL (70-110)
[2023-11-05] MEDS ORDERED: ZOLPIDEM 5 MG TAB PO PRN (18:32)
[2023-11-05 21:18] LABS: Glucose,Whole Blood 226 mg/dL (70-110)
[2023-11-06] MEDS: SODIUM CHLORIDE 0.9% 1,000 ML IV SCH ×3 (00:10→08:53)
[2023-11-06 05:51] LABS: Glucose,Whole Blood 101 mg/dL (70-110)
[2023-11-06] MEDS: PANTOPRAZOLE 40 MG/10 ML VIAL IVP SCH (08:53)
[2023-11-06 09:07] VITALS: RESP 16; TEMP 97.6
[2023-11-06 10:08] LABS: ALT 184 U/L (4-49); AST 320 U/L (17-59); African American GFR (CKD) >90 (>60 ml/min/1.73 sqM); Albumin 2.5 g/dL (3.5-5.0); Alkaline Phosphatase 48 U/L (38-126); Anion Gap 5 mmol/L; Blood Urea Nitrogen 13 mg/dL (9-20); Calcium 7.8 mg/dL (8.4-10.2); Carbon Dioxide 23 mmol/L (22-30); Chloride 111 mmol/L (98-107); Glucose 94 mg/dL (74-99); Non-African American GFR(CKD) >90 (>60 ml/min/1.73 sqM); Sodium 139 mmol/L (137-145); Total Bilirubin 0.4 mg/dL (0.2-1.3); Total Protein 4.5 g/dL (6.3-8.2)
[2023-11-06 11:34] LABS: Glucose,Whole Blood 87 mg/dL (70-110)
[2023-11-06 12:05] LABS: Creatine Kinase 10856 U/L (55-170)
--- NOTE | 2023-11-06 12:20 | P.DS ---
Providers Date of admission: 11/03/23 13:25 Expected date of discharge: 11/06/23 Attending physician: Umm Nunez MD Primary care physician: Stated None Hospital Course: Discharge Diagnosis: Polysubstance abuse Acute toxic encephalopathy Rhabdomyolysis Leukocytosis Dehydration Respiratory and metabolic acidosis Acute kidney injury Lactic acidosis NSTEMI Transaminitis Gastritis Hospital Course: 43-year-old male with history of polysubstance abuse brought in for altered mentation, and was found by family in a car seat with laceration noted over his right forearm, unable to walk, unresponsive for a prolonged period. On arrival, patient was hypothermic, WBC of 24, pH 7.04, pCO2 71, creatinine 2.8, glucose 59, lactate 10.2, troponin 0.429, CK 22,000. Urine drug screen positive for opiates, amphetamines, cocaine, marijuana. Head CT did not show any acute process. EKG showed sinus rhythm. EEG did not show any epileptiform discharges. Echocardiogram showed LVEF 55-60%. Patient was admitted for metabolic derangements in the setting of polysubstance abuse. Patient was well hydrated with IV fluids, metabolic arrangements improved. Renal function improved with the time of discharge. CK down trending. Mentation back to normal. Patient counseled regarding cessation of drugs. Patient seen and examined at bedside. Vital signs reviewed and stable. General: nontoxic, no distress, appears at stated age Derm: warm, dry, facial flushing Head: atraumatic, normocephalic, symmetric Eyes: EOMI, no lid lag, anicteric sclera Mouth: no lip lesion, mucus membranes moist Cardiovascular: S1S2 reg, no murmur Lungs: CTA bilateral, no rhonchi, no rales , no accessory muscle use Abdominal: soft, nontender to palpation, no guarding, no appreciable organomegaly Ext: no gross muscle atrophy, no edema, no contractures Neuro: CN II-XI grossly intact, no focal neuro deficits Psych: Alert, oriented, appropriate affect A total of 33 minutes of time were spent preparing this complex discharge summary. Patient was discharged on 11/06/23 at 1219. Patient Condition at Discharge: Stable Plan - Discharge Summary Discharge Rx Participant: Yes New Discharge Prescriptions: New Multivitamins, Thera [Multivitamin (formulary)] 1 tab PO DAILY #30 tablet Pantoprazole [Protonix] 40 mg PO DAILY #60 tab Discharge Medication List Multivitamins, Thera [Multivitamin (formulary)] 1 tab PO DAILY #30 tablet 11/06/23 [Rx] Pantoprazole [Protonix] 40 mg PO DAILY #60 tab 11/06/23 [Rx] Follow up Appointment(s)/Referral(s): None,Stated [Primary Care Provider] - 1-2 days Patient Instructions/Handouts: Polysubstance Abuse (ED) Activity/Diet/Wound Care/Special Instructions: Please see a PCP and behavioral health counselor. Discharge Disposition: HOME SELF-CARE
--- NOTE | 2023-11-06 13:21 | CDI ---
Documentation Clarification Form Date: 11/06/2023 01:12:42 PM From: Britany Krsihnan RN CCDS Phone: [phone] Admit Date: 11/03/2023 01:25:00 PM Patient Name: Vijay Odell Visit Number: [id number] Discharge Date: ATTENTION: The Clinical Documentation Specialists (CDI) and [facility] Coding Staff appreciate your assistance in clarifying documentation. Please respond to the clarification below the line at the bottom and electronically sign. The CDI & [facility] Coding staff will review the response and follow-up if needed. Please note: Queries are made part of the Legal Health Record. If you have any questions, please contact the author of this message via ITS. Dr. Grady Castillo Sepsis unknown etiology: Patient meets severe sepsis criteria with hypothermia, tachycardia, leukocytosis and lactic acid is documented 11/06, H&P, which may lack sufficient clinical evidence/support in the medical record. Additional clarification is requested. History/Risk Factors: 43-year-old male presents to the ED with altered level of consciousness. Family fund the patient yesterday afternoon hunched over the front seat of the truck. Patient was unable to walk so they helped him get back in the truck laying over the center console and put a blanket over him and he spent the night in the truck. Found this morning unresponsive thus EMS was called. Medial history: MRSA infection 05/07/22 right elbow and every day smoker. 11/03, H&P. Clinical Indicators: VSS, 11/03: B/P 117/76; HR 97; Temp 93.6F Axillary; RR 16; SpO2 91 % Creatinine Kinase: 11/03 60237; 11/04 3908; 11/05 99225; 11/06 55489 Lactic acid: 11/03 10.2; 11/03 4.4; 11/03 2.6; 11/03 2.5 Creatinine: 11/03 2.80; 11/04 1.21; 11/05 0.89; 11/06 0.90 Treatment: 11/03 09:28 0.9NS 1L IV Bolus; 11/03 0.9NS 1L IV Bolus; 11/03 13:05 Sodium Bicarb 8.4% Syr 1Meq/ML) 50ml IV x 1; 11/04 13:15 0 11/04 01:27 Dextrose/Sodium Chl with Sodium Bicarb 50ml 1,050mls @ 100mls/hr; 11/04 08:45 0.9NS 200cc/hr Q5H MARLA; After work up and study, please clarify which diagnosis is most appropriate? [ ] Sepsis ruled out [ ] Sepsis is a valid diagnosis as evidence by the following: (Please add rationale): [ x ] Non-Infectious SIRS due to Rhabdomyolysis [ ] Non-infectious SIRS due to with organ dysfunction as evidenced by [list organ dysfunction] [ ] Other, please specify [ ] Unable to determine (Template Last Reviewed: October 2023) ANAD
--- NOTE | 2023-11-06 13:22 | CDI ---
Documentation Clarification Form Date: 11/06/2023 12:45:25 PM From: Britany Krishnan RN CCDS Phone: [phone] Admit Date: 11/03/2023 01:25:00 PM Patient Name: Vijay Odell Visit Number: [id number] Discharge Date: ATTENTION: The Clinical Documentation Specialists (CDI) and [facility] Coding Staff appreciate your assistance in clarifying documentation. Please respond to the clarification below the line at the bottom and electronically sign. The CDI & [facility] Coding staff will review the response and follow-up if needed. Please note: Queries are made part of the Legal Health Record. If you have any questions, please contact the author of this message via ITS. Dr. Grady Castillo MD Rhabdomyolysis is documented 11/03M H&P, 11/04 11/05 Medicine notes. Additional clarification regarding the type of rhabdomyolysis is requested. History/Risk Factors: 43-year-old male presents to the ED with altered level of consciousness. Family fund the patient yesterday afternoon hunched over the front seat of the truck. Patient was unable to walk so they helped him get back in the truck laying over the center console and put a blanket over him and he spent the night in the truck. Found this morning unresponsive thus EMS was called. Medial history: MRSA infection 05/07/22 right elbow and every day smoker. 11/03, H&P. Clinical Indicators: Creatinine Kinase: 11/03 00253; 11/04 3908; 11/05 96821; 11/06 31823 Lactic acid: 11/03 10.2; 11/03 4.4; 11/03 2.6; 11/03 2.5 Creatinine: 11/03 2.80; 11/04 1.21; 11/05 0.89; 11/06 0.90 Treatment: 11/03 09:28 0.9NS 1L IV Bolus; 11/03 0.9NS 1L IV Bolus; 11/03 13:05 Sodium Bicarb 8.4% Syr 1Meq/ML) 50ml IV x 1; 11/04 13:15 0 11/04 01:27 Dextrose/Sodium Chl with Sodium Bicarb 50ml 1,050mls @ 100mls/hr; 11/04 08:45 0.9NS 200cc/hr Q5H MARLA; Please clarify the type of rhabdomyolysis, if known: [ x] Traumatic rhabdomyolysis due to prolonged immobility [ ] Non traumatic rhabdomyolysis due to infection (please specify) [ ] Other, please specify [ ] Unable to Determine (Template Last Revised: December 2020) MTDD
[2023-11-06 13:50] VITALS: BP 103/63; PULSE 68
--- NOTE | 2023-11-07 15:10 | CDI ---
Documentation Clarification Form Date: 11/07/2023 02:42:42 PM From: Britany Krishnan RN CCDS Phone: [phone] Admit Date: 11/03/2023 01:25:00 PM Patient Name: Vijay Odell Visit Number: [id number] Discharge Date: 11/06/2023 02:28:00 PM ATTENTION: The Clinical Documentation Specialists (CDI) and [facility] Coding Staff appreciate your assistance in clarifying documentation. Please respond to the clarification below the line at the bottom and electronically sign. The CDI & [facility] Coding staff will review the response and follow-up if needed. Please note: Queries are made part of the Legal Health Record. If you have any questions, please contact the author of this message via ITS. Dr. Grady Castillo There is documentation of NSTEMI, documented 11/06 in discharge summary. Additional clarification is requested. History/Risk Factors: 43-year-old male presents to the ED with altered level of consciousness. Family fund the patient yesterday afternoon hunched over the front seat of the truck. Patient was unable to walk so they helped him get back in the truck laying over the center console and put a blanket over him and he spent the night in the truck. Found this morning unresponsive thus EMS was called. Medical History: MRSA infection 05/07/22 right elbow and every day smoker. 11/03, H&P. Clinical Indicators: VSS, 11/03: B/P 117/76; HR 97; Temp 93.6F Axillary; RR 16; SpO2 91 % Creatinine Kinase: 11/03 19708; 11/04 3908; 11/05 65544; 11/06 43620 Medicine note, 11/05: Troponin elevation: Possible rhabdomyolysis. EKG no ST depression or elevation. Troponin flat, ACS ruled out. Echo with no regional wall motion abnormalities. Treatment: 11/03 09:28 0.9NS 1L IV Bolus; 11/03 0.9NS 1L IV Bolus; 11/03 13:05 Sodium Bicarb 8.4% Syr 1Meq/ML) 50ml IV x 1; 11/04 13:15 0 11/04 01:27 Dextrose/Sodium Chl with Sodium Bicarb 50ml 1,050mls @ 100mls/hr; 11/04 08:45 0.9NS 200cc/hr Q5H [facility]; Can you please clarify further clarify NSTEMI ? [ x ] NSTEMI 2 secondary to rhabdomyolysis [ ] NSTEMI ruled out [ ] Other, please specify [ ] Unable to determine (Template Last Revised: December 2020) MTDD
== END 2023-11-06 14:28 | disposition home or self-care (01) | DRG 564 ==
LOC: EC 09:12 → 3SCARD 13:25 → 3NCARDOBS 11-05 04:50 → 3SCARD 11-05 04:53
PROVIDERS: ADMIT Family Medicine; ATTEND Family Medicine
PROC: 0JQG3ZZ Repair Right Lower Arm Subcutaneous Tissue and Fascia, Percutaneous Approach (ICD-10-PCS; principal; 2023-11-03)
DX: T79.6XXA Traumatic ischemia of muscle, initial encounter (principal); G92.8 Other toxic encephalopathy; I21.A1 Myocardial infarction type 2; E87.4 Mixed disorder of acid-base balance; N17.9 Acute kidney failure, unspecified; R65.10 Systemic inflammatory response syndrome (SIRS) of non-infectious origin without acute organ dysfunction; S51.811A Laceration without foreign body of right forearm, initial encounter; S41.111A Laceration without foreign body of right upper arm, initial encounter; E86.0 Dehydration; F11.10 Opioid abuse, uncomplicated; F17.210 Nicotine dependence, cigarettes, uncomplicated; R74.01 Elevation of levels of liver transaminase levels; Z71.51 Drug abuse counseling and surveillance of drug abuser; K29.70 Gastritis, unspecified, without bleeding; Z79.82 Long term (current) use of aspirin; Z28.21 Immunization not carried out because of patient refusal; Z86.14 Personal history of Methicillin resistant Staphylococcus aureus infection
CPT/HCPCS: 12002; 36415; 36600; 70450; 71046; 80053; 80143; 80179; 80306; 80320; 81001; 82140; 82550; 82553; 82803; 82805; 83605; 84484; 84600; 85025; 85027; 85610; 85730; 87040; 87086; 90471; 90715; 93005; 93306; 95816; 96361; 96374; 96375; 96376; 99291

== ENCOUNTER 2024-01-12 14:22 | Emergency (ER) | payer OTHER ==
--- NOTE | 2024-01-12 15:14 | ED ---
Skin/Abscess/FB HPI - General Chief complaint: Skin/Abscess/Foreign Body Stated complaint: rash Time Seen by Provider: 01/12/24 15:12 Source: patient, RN notes reviewed, old records reviewed Mode of arrival: ambulatory Limitations: no limitations - History of Present Illness Initial comments: Patient is a 43-year-old male presented to the ER with a chief complaint of bumps. Patient states he noticed 2 bumps on the back of his head which he is unsure if they are abscess or infection. He states they have been there for about a week. He denies any tenderness or drainage. Patient also is reporting right forearm redness. Patient states he had a traumatic injury about a month ago and was diagnosed with MRSA. He states he has been on antibiotics multiple times. Denies any current tenderness, drainage, surrounding erythema limited range of motion or paresthesias. Denies any fevers, chills, nausea, vomiting, chest pain, shortness of breath, abdominal pain, constipation/diarrhea or urinary complaints. - Related Data Previous Rx's Medication Instructions Recorded Multivitamins, Thera [Multivitamin 1 tab PO DAILY #30 tablet 11/06/23 (formulary)] Pantoprazole [Protonix] 40 mg PO DAILY #60 tab 11/06/23 Cephalexin [Keflex] 500 mg PO Q6HR 7 Days #28 cap 11/09/23 Allergies Allergy/AdvReac Type Severity Reaction Status Date / Time No Known Allergies Allergy Verified 01/12/24 14:43 Review of Systems ROS Statement: Those systems with pertinent positive or pertinent negative responses have been documented in the HPI. ROS Other: All systems not noted in ROS Statement are negative. Past Medical History Past Medical History: No Reported History Additional Past Medical History / Comment(s): mrsa History of Any Multi-Drug Resistant Organisms: MRSA Date of last positivie culture/infection: 05/07/22 MDRO Source:: Right Elbow Past Surgical History: No Surgical Hx Reported Additional Past Surgical History / Comment(s): right knee r/t MRSA Past Anesthesia/Blood Transfusion Reactions: No Reported Reaction Past Psychological History: No Psychological Hx Reported Smoking Status: Current every day smoker Past Alcohol Use History: Occasional Past Drug Use History: Cocaine, Marijuana General Exam Limitations: no limitations General appearance: alert, in no apparent distress Head exam: Present: atraumatic, normocephalic, normal inspection, other (To 1 cm bumps to posterior scalp. No evidence of infection.) Eye exam: Present: normal appearance, PERRL, EOMI. Absent: scleral icterus, conjunctival injection, periorbital swelling Neck exam: Present: normal inspection. Absent: tenderness, meningismus, lymphadenopathy Respiratory exam: Present: normal lung sounds bilaterally. Absent: respiratory distress, wheezes, rales, rhonchi, stridor Cardiovascular Exam: Present: regular rate, normal rhythm, normal heart sounds. Absent: systolic murmur, diastolic murmur, rubs, gallop, clicks Extremities exam: Present: other (3 healing wounds on right forearm. No surrounding erythema, drainage, warmth or tenderness to palpation.) Neurological exam: Present: alert, oriented X3, CN II-XII intact Psychiatric exam: Present: normal affect, normal mood Skin exam: Present: warm, dry, intact, normal color. Absent: rash Course Vital Signs 01/12/24 01/12/24 14:38 15:22 Temperature 98 F 98.2 F Pulse Rate 90 88 Respiratory 18 18 Rate Blood Pressure 130/78 125/76 O2 Sat by Pulse 98 99 Oximetry Medical Decision Making - Medical Decision Making Was pt. sent in by a medical professional or institution (, PA, COMMUNICATIONS OPERATOR, urgent care, hospital, or jail...) When possible be specific @ -No Did you speak to anyone other than the patient for history (EMS, parent, family, police, friend...)? What history was obtained from this source @ -No Did you review nursing and triage notes (agree or disagree)? Why? @ -I reviewed and agree with nursing and triage notes Were old charts reviewed (outside hosp., previous admission, EMS record, old EKG, old radiological studies, urgent care reports/EKG's, jail records)? Report findings @ -No old charts were reviewed Differential Diagnosis (chest pain, altered mental status, abdominal pain women, abdominal pain men, vaginal bleeding, weakness, fever, dyspnea, syncope, headache, dizziness, GI bleed, back pain, seizure, CVA, palpatations, mental health, musculoskeletal)? @ -Cellulitis, cyst, abscess, ingrown hair, laceration, abrasion, wound is listed on med to be all-inclusive EKG interpreted by me (3pts min.). @ -None X-rays interpreted by me (1pt min.). @ -None done CT interpreted by me (1pt min.). @ -None done U/S interpreted by me (1pt. min.). @ -None done What testing was considered but not performed or refused? (CT, X-rays, U/S, labs)? Why? @ -None What meds were considered but not given or refused? Why? @ -None Did you discuss the management of the patient with other professionals (professionals i.e. , PA, COMMUNICATIONS OPERATOR, lab, RT, psych nurse, social research assistant, yeast cake cutter, teacher, inshore undersea warfare officer, case management specialist)? Give summary @ -No Was smoking cessation discussed for >3mins.? @ -I discussed smoking cessation for greater than 3 minutes. The risk of smoking were discussed with the patient including but not limited to risks of cancer, stroke, coronary artery disease and COPD. Also discussed with patient were multiple methods of quitting smoking. Lastly we discussed the financial cost of smoking. Was critical care preformed (if so, how long)? @ -No Were there social determinants of health that impacted care today? How? (Homelessness, low income, unemployed, alcoholism, drug addiction, transportation, low edu. Level, literacy, decrease access to med. care, detention, rehab)? @ -No Was there de-escalation of care discussed even if they declined (Discuss DNR or withdrawal of care, Hospice)? DNR status @ -No What co-morbidities impacted this encounter? (DM, HTN, Smoking, COPD, CAD, Cancer, CVA, ARF, Chemo, Hep., AIDS, mental health diagnosis, sleep apnea, morbid obesity)? @ -Smoker Was patient admitted / discharged? Hospital course, mention meds given and route, prescriptions, significant lab abnormalities, going to OR and other pertinent info. @ -Discharge. Patient is a 43-year-old male presenting to the ER with a chief complaint of skin infection. History and physical exam completed. Vitals stable. Patient in no signs of acute distress and nontoxic-appearing. Patient had healing wound on right forearm. No signs of infection. 2 ingrown hairs on posterior scalp with no signs of infection. Findings discussed with patient, all questions answered. I advised patient to follow-up with dermatology and that antibiotics are not appropriate at this time. I discussed smoking cessation for greater than 3 minutes. The risk of smoking were discussed with the patient including but not limited to risks of cancer, stroke, coronary artery disease and COPD. Also discussed with patient were multiple methods of quitting smoking. Lastly we discussed the financial cost of smoking. Return parameters discussed. Patient discharged stable condition with follow-up to PCP/dermatology. Referrals given. Patient expressed understanding and agreement with care plan. Case discussed with ED attending, Dr. Vo. Undiagnosed new problem with uncertain prognosis? @ -No Drug Therapy requiring intensive monitoring for toxicity (Heparin, Nitro, Insulin, Cardizem)? @ -No Were any procedures done? @ -No Diagnosis/symptom? @ -Healing wound/ingrown hair Acute, or Chronic, or Acute on Chronic? @ -Acute Uncomplicated (without systemic symptoms) or Complicated (systemic symptoms)? @ -Uncomplicated Side effects of treatment? @ -No Exacerbation, Progression, or Severe Exacerbation? @ -No Poses a threat to life or bodily function? How? (Chest pain, USA, DC, pneumonia, PE, COPD, DKA, ARF, appy, cholecystitis, CVA, Diverticulitis, Homicidal, Suicidal, threat to staff... and all critical care pts) @ -No Disposition Clinical Impression: Ingrown hair, Healing wound Disposition: HOME SELF-CARE Condition: Stable Instructions (If sedation given, give patient instructions): Wound Healing and Your Diet (ED) Additional Instructions: Please follow-up with PCP/dermatology. Return to the ER for any new or worsening concerns. Is patient prescribed a controlled substance at d/c from ED?: No Referrals: None,Stated [Primary Care Provider] - 1-2 days Cb Carlos MD [STAFF PHYSICIAN] - 1-2 days Martín Nolan MD [REFERRING] - 1-2 days Radha Carlos MD [STAFF PHYSICIAN] - 1-2 days Sydney Ponce MD [REFERRING] - 1-2 days Time of Disposition: 15:14
[2024-01-12 15:42] VITALS: BP 125/76; PULSE 88; RESP 18; TEMP 98.2
== END 2024-01-12 15:22 | disposition home or self-care (01) ==
LOC: EC 14:22
DX: T81.30XA Disruption of wound, unspecified, initial encounter (principal); L73.1 Pseudofolliculitis barbae; F12.90 Cannabis use, unspecified, uncomplicated; F17.200 Nicotine dependence, unspecified, uncomplicated
CPT/HCPCS: 99282

== ENCOUNTER 2024-01-14 18:06 | Emergency (ER) | payer OTHER ==
--- NOTE | 2024-01-14 18:57 | ED ---
Male Urogenital HPI - General Chief complaint: Urogenital Stated complaint: STD/STI screening Time Seen by Provider: 01/14/24 19:38 Source: patient, RN notes reviewed Mode of arrival: ambulatory Limitations: no limitations - History of Present Illness Initial comments: Patient is a 43-year-old male presenting to the ER with chief complaint of dysuria. Patient states for the past couple of days he has been having difficulty urinating. He reports his girlfriend recently tested positive for trichomonas. He states he has had in the past and it feels similar. Denies any lesions, hematuria, penile discharge. Denies any abdominal pain, fevers, chills. No other complaints at this time. - Related Data Previous Rx's Medication Instructions Recorded Multivitamins, Thera [Multivitamin 1 tab PO DAILY #30 tablet 11/06/23 (formulary)] Pantoprazole [Protonix] 40 mg PO DAILY #60 tab 11/06/23 Cephalexin [Keflex] 500 mg PO Q6HR 7 Days #28 cap 11/09/23 metroNIDAZOLE [Flagyl] 500 mg PO ONCE 1 Days #4 tab 01/14/24 Allergies Allergy/AdvReac Type Severity Reaction Status Date / Time No Known Allergies Allergy Verified 01/14/24 18:35 Review of Systems ROS Statement: Those systems with pertinent positive or pertinent negative responses have been documented in the HPI. ROS Other: All systems not noted in ROS Statement are negative. Past Medical History Past Medical History: No Reported History Additional Past Medical History / Comment(s): mrsa History of Any Multi-Drug Resistant Organisms: MRSA Date of last positivie culture/infection: 05/07/22 MDRO Source:: Right Elbow Past Surgical History: No Surgical Hx Reported Additional Past Surgical History / Comment(s): right knee r/t MRSA Past Anesthesia/Blood Transfusion Reactions: No Reported Reaction Past Psychological History: No Psychological Hx Reported Smoking Status: Current every day smoker Past Alcohol Use History: Occasional Past Drug Use History: Marijuana General Exam Limitations: no limitations General appearance: alert, in no apparent distress Head exam: Present: atraumatic, normocephalic, normal inspection Eye exam: Present: normal appearance, PERRL, EOMI. Absent: scleral icterus, conjunctival injection, periorbital swelling Respiratory exam: Present: normal lung sounds bilaterally. Absent: respiratory distress, wheezes, rales, rhonchi, stridor Cardiovascular Exam: Present: regular rate, normal rhythm, normal heart sounds. Absent: systolic murmur, diastolic murmur, rubs, gallop, clicks GI/Abdominal exam: Present: soft, normal bowel sounds. Absent: distended, tenderness, guarding, rebound, rigid Neurological exam: Present: alert, oriented X3, CN II-XII intact Psychiatric exam: Present: normal affect, normal mood Skin exam: Present: warm, dry, intact, normal color. Absent: rash Course Vital Signs 01/14/24 18:33 Temperature 97.3 F L Pulse Rate 78 Respiratory 18 Rate Blood Pressure 139/88 O2 Sat by Pulse 100 Oximetry Medical Decision Making - Medical Decision Making Was pt. sent in by a medical professional or institution (MARY Crowell, NUCLEAR CRITICALITY SAFETY ENGINEER, urgent care, hospital, or correction...) When possible be specific @ -No Did you speak to anyone other than the patient for history (EMS, parent, family, police, friend...)? What history was obtained from this source @ -No Did you review nursing and triage notes (agree or disagree)? Why? @ -I reviewed and agree with nursing and triage notes Were old charts reviewed (outside hosp., previous admission, EMS record, old EKG, old radiological studies, urgent care reports/EKG's, correction records)? Report findings @ -No old charts were reviewed Differential Diagnosis (chest pain, altered mental status, abdominal pain women, abdominal pain men, vaginal bleeding, weakness, fever, dyspnea, syncope, headache, dizziness, GI bleed, back pain, seizure, CVA, palpatations, mental health, musculoskeletal)? @ -Gonorrhea, chlamydia, trichomonas, UTI, HPV, cellulitis this list is not meant to be all-inclusive EKG interpreted by me (3pts min.). @ -None X-rays interpreted by me (1pt min.). @ -None done CT interpreted by me (1pt min.). @ -None done U/S interpreted by me (1pt. min.). @ -None done What testing was considered but not performed or refused? (CT, X-rays, U/S, labs)? Why? @ - exam refused by patient What meds were considered but not given or refused? Why? @ -Patient refused prophylactic gonorrhea and chlamydia treatment. Did you discuss the management of the patient with other professionals (professionals i.e. , PA, NUCLEAR CRITICALITY SAFETY ENGINEER, lab, RT, psych nurse, social worker health services, chip silo tender, teacher, credit administration officer, case maker)? Give summary @ -No Was smoking cessation discussed for >3mins.? @ -No Was critical care preformed (if so, how long)? @ -No Were there social determinants of health that impacted care today? How? (Homelessness, low income, unemployed, alcoholism, drug addiction, transportation, low edu. Level, literacy, decrease access to med. care, [facility], rehab)? @ -No Was there de-escalation of care discussed even if they declined (Discuss DNR or withdrawal of care, Hospice)? DNR status @ -No What co-morbidities impacted this encounter? (DM, HTN, Smoking, COPD, CAD, Cancer, CVA, ARF, Chemo, Hep., AIDS, mental health diagnosis, sleep apnea, morbid obesity)? @ -None Was patient admitted / discharged? Hospital course, mention meds given and route, prescriptions, significant lab abnormalities, going to OR and other pertinent info. @ -Discharge. Patient is a 43-year-old male presented to ER with a chief complaint of STD exposure and dysuria. History and physical exam completed. Vitals stable. Patient in no signs of acute distress and nontoxic-appearing. Urinalysis without signs of infection. Gonorrhea, chlamydia, trichomonas testing pending. Patient will be prophylactically treated with Flagyl. Patient refused prophylactic treatment of gonorrhea and chlamydia. Patient instructed to complete full course of antibiotics. Strict return parameters discussed. Advised patient to notify all sexual partners. Patient discharged in stable condition with follow-up to PCP. Patient expressed understanding and agreement with care plan. Undiagnosed new problem with uncertain prognosis? @ -No Drug Therapy requiring intensive monitoring for toxicity (Heparin, Nitro, Insulin, Cardizem)? @ -No Were any procedures done? @ -No Diagnosis/symptom? @ -STD exposure Acute, or Chronic, or Acute on Chronic? @ -Acute Uncomplicated (without systemic symptoms) or Complicated (systemic symptoms)? @ -Uncomplicated Side effects of treatment? @ -No Exacerbation, Progression, or Severe Exacerbation? @ -No Poses a threat to life or bodily function? How? (Chest pain, [place], [place], pneumonia, PE, COPD, DKA, ARF, appy, cholecystitis, CVA, Diverticulitis, Homicidal, Suicidal, threat to staff... and all critical care pts) @ -No - Lab Data Lab Results 01/14/24 Range/Units 18:51 Urine Color Colorless Urine Appearance Clear (Clear) Urine pH 6.5 (5.0-8.0) Ur Specific [place] 1.011 (1.001-1.035) Urine Protein Negative (Negative) Urine Glucose (UA) Negative (Negative) Urine Ketones Negative (Negative) Urine Blood Negative (Negative) Urine Nitrite Negative (Negative) Urine Bilirubin Negative (Negative) Urine Urobilinogen <2.0 (<2.0) mg/dL Ur Leukocyte Esterase Negative (Negative) Disposition Clinical Impression: STD exposure Disposition: HOME SELF-CARE Condition: Stable Instructions (If sedation given, give patient instructions): Sexually Transmitted Diseases (ED) Additional Instructions: Please complete full course of Flagyl. Any positive results will be called to you. Follow-up with PCP. Return to the ER for any new or worsening concerns. Prescriptions: metroNIDAZOLE [Flagyl] 500 mg PO ONCE 1 Days #4 tab Is patient prescribed a controlled substance at d/c from ED?: No Referrals: None,Stated [Primary Care Provider] - 1-2 days Time of Disposition: 18:57
[2024-01-14 19:15] LABS: Appearance,Urine Clear (Clear); Bilirubin,Urine Negative (Negative); Blood,Urine Negative (Negative); Color,Urine Colorless; Glucose,Urine (UA) Negative (Negative); Ketones,Urine Negative (Negative); Leukocyte Esterase,Urine Negative (Negative); Nitrite,Urine Negative (Negative); PH, Urine 6.5 (5.0-8.0); Protein,Urine Negative (Negative); Specific Gravity,Urine 1.011 (1.001-1.035); Urobilinogen,Urine <2.0 mg/dL (<2.0)
[2024-01-14 19:16] VITALS: BP 139/88; PULSE 78; RESP 18; TEMP 97.3
== END 2024-01-14 22:25 | disposition home or self-care (01) ==
LOC: EC 18:06
DX: Z20.2 Contact with and (suspected) exposure to infections with a predominantly sexual mode of transmission (principal); F17.200 Nicotine dependence, unspecified, uncomplicated
CPT/HCPCS: 81003; 87491; 87591; 99283

== ENCOUNTER 2024-07-16 18:14 | Emergency (ER) | payer OTHER ==
[2024-07-16 18:18] VITALS: BP 118/63; PULSE 112; RESP 20; TEMP 98
--- NOTE | 2024-07-16 18:41 | ED ---
Skin/Abscess/FB HPI - General Chief complaint: Skin/Abscess/Foreign Body Stated complaint: rash Time Seen by Provider: 07/16/24 18:30 Source: patient, RN notes reviewed Mode of arrival: ambulatory Limitations: no limitations - History of Present Illness Initial comments: 43-year-old male presents emergency department chief complaint of skin infection and encounter for possible STD exposure. Patient states that he history of MRSA infection is concerned that this may be present again as he has multiple abscesses and pruritic skin over his right arm and of the posterior scalp. Additionally patient states that over the past few days he has been experiencing a burning sensation during urination and feels that he is unable to complete his full stream. Patient states that this feels similar as when he has had a STI in the past. Denies fevers, chills, nausea, vomiting. No other acute complaints this time - Related Data Previous Rx's Medication Instructions Recorded Multivitamins, Thera [Multivitamin 1 tab PO DAILY #30 tablet 11/06/23 (formulary)] Pantoprazole [Protonix] 40 mg PO DAILY #60 tab 11/06/23 Cephalexin [Keflex] 500 mg PO Q6HR 7 Days #28 cap 11/09/23 metroNIDAZOLE [Flagyl] 500 mg PO ONCE 1 Days #4 tab 01/14/24 Doxycycline Hyclate 100 mg PO BID 14 Days #28 tab 03/23/24 Doxycycline [Vibramycin] 100 mg PO BID #13 capsule 07/16/24 metroNIDAZOLE [Flagyl] 500 mg PO TID #13 tab 07/16/24 Allergies Allergy/AdvReac Type Severity Reaction Status Date / Time No Known Allergies Allergy Verified 07/16/24 18:18 Review of Systems ROS Statement: Those systems with pertinent positive or pertinent negative responses have been documented in the HPI. ROS Other: All systems not noted in ROS Statement are negative. Past Medical History Past Medical History: No Reported History Additional Past Medical History / Comment(s): mrsa History of Any Multi-Drug Resistant Organisms: MRSA Date of last positivie culture/infection: 05/07/22 MDRO Source:: Right Elbow Past Surgical History: No Surgical Hx Reported Additional Past Surgical History / Comment(s): right knee r/t MRSA Past Anesthesia/Blood Transfusion Reactions: No Reported Reaction Past Psychological History: No Psychological Hx Reported Smoking Status: Current every day smoker Past Alcohol Use History: Occasional Past Drug Use History: Marijuana General Exam Limitations: no limitations Head exam: Present: atraumatic, normocephalic, normal inspection ENT exam: Present: normal exam, mucous membranes moist Neck exam: Present: normal inspection. Absent: tenderness, meningismus, lymp hadenopathy Respiratory exam: Present: normal lung sounds bilaterally. Absent: respiratory distress, wheezes, rales, rhonchi, stridor Cardiovascular Exam: Present: regular rate, normal rhythm, normal heart sounds. Absent: systolic murmur, diastolic murmur, rubs, gallop, clicks GI/Abdominal exam: Present: soft, normal bowel sounds. Absent: distended, tenderness, guarding, rebound, rigid Extremities exam: Present: normal inspection, full ROM, normal capillary refill. Absent: tenderness, pedal edema, joint swelling, calf tenderness Back exam: Present: normal inspection Skin exam: Present: warm, dry, intact, normal color, other (excoriation, abscess with open skin, no signs of purulence or active drainage). Absent: rash Course Vital Signs 07/16/24 18:15 Temperature 98 F Pulse Rate 112 H Respiratory 20 Rate Blood Pressure 118/63 O2 Sat by Pulse 99 Oximetry Medical Decision Making - Medical Decision Making Was pt. sent in by a medical professional or institution (, PA, BRAKE ADJUSTER, urgent care, hospital, or prison...) When possible be specific @ -No Did you speak to anyone other than the patient for history (EMS, parent, family, police, friend...)? What history was obtained from this source @ -No Did you review nursing and triage notes (agree or disagree)? Why? @ -I reviewed and agree with nursing and triage notes Were old charts reviewed (outside hosp., previous admission, EMS record, old EKG, old radiological studies, urgent care reports/EKG's, prison records)? Report findings @ -No old charts were reviewed Differential Diagnosis (chest pain, altered mental status, abdominal pain women, abdominal pain men, vaginal bleeding, weakness, fever, dyspnea, syncope, headache, dizziness, GI bleed, back pain, seizure, CVA, palpatations, mental health, musculoskeletal)? @ -Cellulitis, chlamydia, gonorrhea, urinary tract infection, this list not all inclusive EKG interpreted by me (3pts min.). @ -As above X-rays interpreted by me (1pt min.). @ -None done CT interpreted by me (1pt min.). @ -None done U/S interpreted by me (1pt. min.). @ -None done What testing was considered but not performed or refused? (CT, X-rays, U/S, labs)? Why? @ -None What meds were considered but not given or refused? Why? @ -None Did you discuss the management of the patient with other professionals (professionals i.e. , PA, BRAKE ADJUSTER, lab, RT, psych nurse, delinquency prevention social worker, forming tube selector, teacher, administrative services officer, adult protective caseworker)? Give summary @ -No Was smoking cessation discussed for >3mins.? @ -No Was critical care preformed (if so, how long)? @ -No Were there social determinants of health that impacted care today? How? (Homelessness, low income, unemployed, alcoholism, drug addiction, transportation, low edu. Level, literacy, decrease access to med. care, assisted, rehab)? @ -No Was there de-escalation of care discussed even if they declined (Discuss DNR or withdrawal of care, Hospice)? DNR status @ -No What co-morbidities impacted this encounter? (DM, HTN, Smoking, COPD, CAD, Cancer, CVA, ARF, Chemo, Hep., AIDS, mental health diagnosis, sleep apnea, morbid obesity)? @ -None Was patient admitted / discharged? Hospital course, mention meds given and route, prescriptions, significant lab abnormalities, going to OR and other pertinent info. @ -Patient eloped. 43-year-old male with skin infection and urinary complaints. Patient's urinalysis unremarkable for signs of infection. Patient's urine is sent for testing of chlamydia, gonorrhea, and trichomonas. Patient left the emergency department via elopement and did not receive the antibiotics for prophylaxis of STIs. Undiagnosed new problem with uncertain prognosis? @ -No Drug Therapy requiring intensive monitoring for toxicity (Heparin, Nitro, Insulin, Cardizem)? @ -No Were any procedures done? @ -No Diagnosis/symptom? @ -encounter for prophylaxis treatment of STIs, MRSA infection/cellulitis Acute, or Chronic, or Acute on Chronic? @ -acute Uncomplicated (without systemic symptoms) or Complicated (systemic symptoms)? @ -uncomplictaed Side effects of treatment? @ -No Exacerbation, Progression, or Severe Exacerbation? @ -No Poses a threat to life or bodily function? How? (Chest pain, [place], [place], pneumonia, PE, COPD, DKA, ARF, appy, cholecystitis, CVA, Diverticulitis, Homicidal, Suicidal, threat to staff... and all critical care pts) @ -No - Lab Data Lab Results 07/16/24 Range/Units 18:49 Urine Color Light Yellow Urine Appearance Clear (Clear) Urine pH 5.5 (5.0-8.0) Ur Specific [place] 1.023 (1.001-1.035) Urine Protein Negative (Negative) Urine Glucose (UA) Negative (Negative) Urine Ketones Negative (Negative) Urine Blood Negative (Negative) Urine Nitrite Negative (Negative) Urine Bilirubin Negative (Negative) Urine Urobilinogen <2.0 (<2.0) mg/dL Ur Leukocyte Esterase Negative (Negative) Disposition Clinical Impression: MRSA cellulitis, Potential exposure to STD Disposition: HOME SELF-CARE Condition: Good Instructions (If sedation given, give patient instructions): MRSA (Methicillin- Resistant Staphylococcus Aureus) (ED), Safe Sex Practices (ED) Additional Instructions: Return to the emergency department for any new or worsening symptoms. Complete full course of both antibiotics as prescribed. Recommend that you do not consume alcohol while taking Flagyl as this may cause a severe reaction. Prescriptions: metroNIDAZOLE [Flagyl] 500 mg PO TID #13 tab Doxycycline [Vibramycin] 100 mg PO BID #13 capsule Is patient prescribed a controlled substance at d/c from ED?: No Referrals: None,Stated [Primary Care Provider] - 1-2 days Time of Disposition: 19:27
[2024-07-16 18:54] LABS: Appearance,Urine Clear (Clear); Bilirubin,Urine Negative (Negative); Blood,Urine Negative (Negative); Color,Urine Light Yellow; Glucose,Urine (UA) Negative (Negative); Ketones,Urine Negative (Negative); Leukocyte Esterase,Urine Negative (Negative); Nitrite,Urine Negative (Negative); PH, Urine 5.5 (5.0-8.0); Protein,Urine Negative (Negative); Specific Gravity,Urine 1.023 (1.001-1.035); Urobilinogen,Urine <2.0 mg/dL (<2.0)
[2024-07-16] MEDS: cefTRIAXone 1,000 MG VIAL (IM USE) IM STA (19:49)
[2024-07-16] MEDS: metroNIDAZOLE 250 MG TABLET PO ONE (19:50)
[2024-07-16] MEDS: DOXYCYCLINE 100 MG CAP PO STA (19:50)
[2024-07-17 12:23] LABS: C. trachomatis,PCR Negative (Negative)
[2024-07-17 12:29] LABS: N. gonorrhoeae,PCR Negative (Negative)
== END 2024-07-16 19:54 | disposition home or self-care (01) ==
LOC: EC 18:14
CPT/HCPCS: 81003; 87491; 87591; 99283

== ENCOUNTER 2024-10-13 06:49 | Emergency (ER) | payer OTHER ==
[2024-10-13 06:57] VITALS: BP 137/71; PULSE 98; RESP 18; TEMP 97.3
--- NOTE | 2024-10-13 07:14 | ED ---
Male Urogenital HPI - General Chief complaint: Urogenital Stated complaint: Infection Time Seen by Provider: 10/13/24 06:52 Source: patient, RN notes reviewed Mode of arrival: ambulatory Limitations: no limitations - History of Present Illness Initial comments: 44-year-old male presents emergency department chief complaint of concern for STD. Patient states he has some dysuria states he was told he was exposed to an STD he believes it was gonorrhea chlamydia but he states has had trichomonas in the past. Patient denies any fevers or chills no abdominal pain no flank pain no other acute complaints. - Related Data Previous Rx's Medication Instructions Recorded Multivitamins, Thera [Multivitamin 1 tab PO DAILY #30 tablet 11/06/23 (formulary)] Pantoprazole [Protonix] 40 mg PO DAILY #60 tab 11/06/23 Cephalexin [Keflex] 500 mg PO Q6HR 7 Days #28 cap 11/09/23 metroNIDAZOLE [Flagyl] 500 mg PO ONCE 1 Days #4 tab 01/14/24 Doxycycline Hyclate 100 mg PO BID 14 Days #28 tab 03/23/24 Doxycycline [Vibramycin] 100 mg PO BID #13 capsule 07/16/24 metroNIDAZOLE [Flagyl] 500 mg PO TID #13 tab 07/16/24 Doxycycline [Vibramycin] 100 mg PO BID #14 capsule 10/13/24 Allergies Allergy/AdvReac Type Severity Reaction Status Date / Time No Known Allergies Allergy Verified 10/13/24 06:57 Review of Systems ROS Statement: Those systems with pertinent positive or pertinent negative responses have been documented in the HPI. ROS Other: All systems not noted in ROS Statement are negative. Past Medical History Past Medical History: No Reported History Additional Past Medical History / Comment(s): mrsa History of Any Multi-Drug Resistant Organisms: MRSA Date of last positivie culture/infection: 05/07/22 MDRO Source:: Right Elbow Past Surgical History: No Surgical Hx Reported Additional Past Surgical History / Comment(s): right knee r/t MRSA Past Anesthesia/Blood Transfusion Reactions: No Reported Reaction Past Psychological History: No Psychological Hx Reported Smoking Status: Current every day smoker, Vaper Past Alcohol Use History: Occasional Past Drug Use History: Marijuana General Exam Limitations: no limitations General appearance: alert, in no apparent distress Head exam: Present: atraumatic, normocephalic, normal inspection Respiratory exam: Present: normal lung sounds bilaterally. Absent: respiratory distress, wheezes, rales, rhonchi, stridor Cardiovascular Exam: Present: regular rate, normal rhythm, normal heart sounds. Absent: systolic murmur, diastolic murmur, rubs, gallop, clicks GI/Abdominal exam: Present: soft, normal bowel sounds. Absent: distended, tenderness, guarding, rebound, rigid Course Vital Signs 10/13/24 06:54 Temperature 97.3 F L Pulse Rate 98 Respiratory 18 Rate Blood Pressure 137/71 O2 Sat by Pulse 100 Oximetry Medical Decision Making - Medical Decision Making Was pt. sent in by a medical professional or institution (, MARY, ORTHODONTIC TECHNICIAN ASSISTANT, urgent care, hospital, or penitentiary...) When possible be specific @ -No Did you speak to anyone other than the patient for history (EMS, parent, family, police, friend...)? What history was obtained from this source @ -No Did you review nursing and triage notes (agree or disagree)? Why? @ -I reviewed and agree with nursing and triage notes Were old charts reviewed (outside hosp., previous admission, EMS record, old EKG, old radiological studies, urgent care reports/EKG's, penitentiary records)? Report findings @ -No old charts were reviewed Differential Diagnosis (chest pain, altered mental status, abdominal pain women, abdominal pain men, vaginal bleeding, weakness, fever, dyspnea, syncope, headache, dizziness, GI bleed, back pain, seizure, CVA, palpatations, mental health, musculoskeletal)? @ -Dysuria, UTI, STD EKG interpreted by me (3pts min.). @ -None X-rays interpreted by me (1pt min.). @ -None done CT interpreted by me (1pt min.). @ -None done U/S interpreted by me (1pt. min.). @ -None done What testing was considered but not performed or refused? (CT, X-rays, U/S, la bs)? Why? @ -None What meds were considered but not given or refused? Why? @ -None Did you discuss the management of the patient with other professionals (professionals i.e. MARY Crowell, ORTHODONTIC TECHNICIAN ASSISTANT, lab, RT, psych nurse, social psychologist, line assigner, teacher, intelligence officer basic, telephonic nurse case manager)? Give summary @ -No Was smoking cessation discussed for >3mins.? @ -No Was critical care preformed (if so, how long)? @ -No Were there social determinants of health that impacted care today? How? (Homelessness, low income, unemployed, alcoholism, drug addiction, transportation, low edu. Level, literacy, decrease access to med. care, retirement, rehab)? @ -No Was there de-escalation of care discussed even if they declined (Discuss DNR or withdrawal of care, Hospice)? DNR status @ -No What co-morbidities impacted this encounter? (DM, HTN, Smoking, COPD, CAD, Cancer, CVA, ARF, Chemo, Hep., AIDS, mental health diagnosis, sleep apnea, morbid obesity)? @ -None Was patient admitted / discharged? Hospital course, mention meds given and route, prescriptions, significant lab abnormalities, going to OR and other pertinent info. @ -Discharge patient had urinalysis gonorrhea and chlamydia ordered patient be treated with Flagyl, doxycycline, Rocephin. Patient discharged in stable condition. Undiagnosed new problem with uncertain prognosis? @ -No Drug Therapy requiring intensive monitoring for toxicity (Heparin, Nitro, Insulin, Cardizem)? @ -No Were any procedures done? @ -No Diagnosis/symptom? @ -Dysuria, STD exposure Acute, or Chronic, or Acute on Chronic? @ -Acute Uncomplicated (without systemic symptoms) or Complicated (systemic symptoms)? @ -uncomplicated Side effects of treatment? @ -No Exacerbation, Progression, or Severe Exacerbation? @ -No Poses a threat to life or bodily function? How? (Chest pain, [place], [place], pneumonia, PE, COPD, DKA, ARF, appy, cholecystitis, CVA, Diverticulitis, Homicidal, Suicidal, threat to staff... and all critical care pts) @ -No Disposition Clinical Impression: Dysuria, Screen for STD (sexually transmitted disease) Disposition: HOME SELF-CARE Condition: Stable Instructions (If sedation given, give patient instructions): Urinary Tract Infection in Men (ED) Additional Instructions: Please return to the Emergency Department if symptoms worsen or any other concerns. Prescriptions: Doxycycline [Vibramycin] 100 mg PO BID #14 capsule Is patient prescribed a controlled substance at d/c from ED?: No Referrals: None,Stated [Primary Care Provider] - 1-2 days Time of Disposition: 07:14
[2024-10-13 07:49] LABS: Appearance,Urine Clear (Clear); Bilirubin,Urine Negative (Negative); Blood,Urine Negative (Negative); Color,Urine Colorless; Glucose,Urine (UA) 1+ (Negative); Ketones,Urine Negative (Negative); Leukocyte Esterase,Urine Negative (Negative); Nitrite,Urine Negative (Negative); PH, Urine 6.5 (5.0-8.0); Protein,Urine Negative (Negative); Specific Gravity,Urine 1.015 (1.001-1.035); Urobilinogen,Urine <2.0 mg/dL (<2.0)
[2024-10-13] MEDS: cefTRIAXone 1,000 MG VIAL (IM USE) IM STA (08:00)
[2024-10-13] MEDS: metroNIDAZOLE 500 MG TAB PO STA (08:01)
[2024-10-14 14:25] LABS: C. trachomatis,PCR Negative (Negative); N. gonorrhoeae,PCR Negative (Negative)
== END 2024-10-13 07:40 | disposition home or self-care (01) ==
LOC: EC 06:49
DX: R30.0 Dysuria (principal); Z11.3 Encounter for screening for infections with a predominantly sexual mode of transmission; F17.290 Nicotine dependence, other tobacco product, uncomplicated
CPT/HCPCS: 81003; 87491; 87591; 96372; 99283